=== PATIENT | male | born 1960 | race African-American/Black ===

== ENCOUNTER 2017-08-15 17:37 | Inpatient (IN) | payer OTHER ==
[2017-08-15] VITALS: BP 140/80
[~2017-08-15] VITALS: Ht 165.1 cm; Wt 63.5 kg
[2017-08-15 04:00] VITALS: BP 140/72
[~2017-08-15 17:37] MED LIST: ASPIR 8181 MG ORAL; DIOVAN80 MG ORAL; IBUPROFEN600 MG ORAL; NOVOLIN R100 UNIT/1 SUBQ
[2017-08-15 17:58] VITALS: BP 120/72
[2017-08-15 18:32] LABS: APPEARANCE,URINE CLEAR; BILIRUBIN, URINE NEGATIVE (NEGATIVE); COLOR,URINE PALE YELLOW; GLUCOSE, URINE (UA) 4+ (NEGATIVE); KETONES,URINE 1+ (NEGATIVE); LEUKOCYTE ESTERASE ,URINE NEGATIVE (NEGATIVE); NITRITE,URINE NEGATIVE (NEGATIVE); PH,URINE 5 (4.5-8.0); PROTEIN,URINE NEGATIVE (NEGATIVE); UROBILINOGEN,URINE NORMAL MG/DL (0.0-1.0)
[2017-08-15] MEDS ORDERED: Morphine Sulfate 4mg/ml Inj IM ONE (19:00)
[2017-08-15 19:55] VITALS: BP 157/74
[2017-08-15] MEDS ORDERED: NORCO 5-325 TA1 EAC1 ORAL (20:02)
[2017-08-15] MEDS ORDERED: PHENOBARBITAL32.4 MG PO (20:05)
[2017-08-15] MEDS ORDERED: GABAPENTIN300 MG ORAL (20:05)
[2017-08-15] MEDS ORDERED: CLOPIDOGREL75 MG ORAL (20:05)
[2017-08-15] MEDS ORDERED: SIMVASTATIN20 MG ORAL (20:05)
[2017-08-15] MEDS ORDERED: PHENYTOIN SODI100 MG ORAL (20:05)
[2017-08-15 20:32] LABS: ANION GAP 10 mmol/L (5-15); BLOOD UREA NITROGEN 7 mg/dL (7-18); CALCIUM 8.7 MG/DL (8.5-10.1); CARBON DIOXIDE 27 MMOL/L (21-32); CHLORIDE 96 MMOL/L (98-107); CREATININE 1.1 MG/DL (0.55-1.30); POTASSIUM 3.5 MMOL/L (3.5-5.1); SODIUM 133 MMOL/L (136-145)
[2017-08-15 20:45] LABS: ALANINE AMINOTRANSFERASE 35 U/L (12-78); ALBUMIN 3.2 G/DL (3.4-5.0); ALBUMIN/GLOBULIN RATIO 0.9 (1.0-2.7); ALKALINE PHOSPHATASE 80 U/L (46-116); ASPARTATE AMINO TRANSFERASE 25 U/L (15-37); BILIRUBIN,TOTAL 0.3 MG/DL (0.2-1.0); CKMB 1.6 NG/ML (0.0-3.6); CREATINE KINASE 85 U/L (26-308)
[2017-08-15] MEDS ORDERED: Morphine Sulfate 4mg/ml Inj IVP ONE (20:45)
--- NOTE | 2017-08-15 22:35 | Emergency Room Report ---
History of Present Illness General Chief Complaint: General Complaint Source: EMS Present Illness HPI Patient is a 57-year-old male brought in by EMS after increased generalized body aches as well as chest pain. Patient was having chest pain which was sharp in nature worse with breathing. Patient had a history of coronary artery disease. He reports having prior history of diabetes which was uncontrolled. Patient states that he takes insulin as well as a sliding scale. He denies any fever. He reports having prior history of angioplasty which was performed at [facility]. Patient states that he did have increased pain to his legs and has prior history of neuropathy. The patient's blood sugar checked by EMS was noted to be greater than 500. Allergies: Coded Allergies: No Known Allergies (Unverified , 03/05/16) Patient History Past Medical History: see triage record Reviewed Nursing Documentation: PMH: Agreed; PSxH: Agreed Nursing Documentation-PMH Past Medical History: No History, Except For Hx Cardiac Problems: Yes Hx Hypertension: Yes Hx Diabetes: Yes Hx Cancer: No Hx Gastrointestinal Problems: No Hx Neurological Problems: Yes - seizures Hx Seizures: Yes Review of Systems All Other Systems: negative except mentioned in HPI Physical Exam Vital Signs Date Time Temp Pulse Resp B/P (MAP) Pulse Ox O2 Delivery O2 Flow Rate FiO2 08/15/17 17:32 98.0 96 16 120/72 98 Room Air 98.1 Sp02 EP Interpretation: reviewed, normal General Appearance: normal inspection, well appearing, no apparent distress, alert, GCS 15, Chronically Ill Head: atraumatic ENT: normal ENT inspection, hearing grossly normal, normal voice Neck: normal inspection, full range of motion, supple, no bony tend Respiratory: normal inspection, no retraction, rhonchi Cardiovascular #1: regular rate, rhythm, edema Gastrointestinal: normal inspection, normal bowel sounds, non tender, soft, no guarding, no hernia Genitourinary: no CVA tenderness Musculoskeletal: normal inspection, back normal, normal range of motion Neurologic: normal inspection, alert, responsive, speech normal Psychiatric: normal inspection, judgement/insight normal, mood/affect normal Skin: normal inspection, normal color, no rash Medical Decision Making Diagnostic Impression: Primary Impression: Chest pain at rest Additional Impressions: Hyperglycemia Coronary artery disease ER Course Patient presented for chest pain.Differential diagnosis included but was not limited to acute coronary syndrome, pulmonary embolism, pneumonia, aortic dissection, shingles, pneumothorax, aortic dissection, esophageal rupture, pericarditis. Because of complexity of patient's case laboratory testing and imaging studies were ordered.Laboratory testing was notable for evidence of hyperglycemia as well as normal troponin.Chest Xray interpreted by me 1 view showed no evident infiltrate, normal mediastinum, and normal cardiac size.Patient was started on IV fluids as well as insulin.Dr. Duron was contacted for inpatient management due to need for inpatient monitoring and treatment. Labs Test 08/15/17 18:00 08/15/17 18:02 08/15/17 19:50 Urine Opiates Screen Negative (NEGATIVE) Urine Barbiturates Screen Negative (NEGATIVE) Phencyclidine (PCP) Screen Negative (NEGATIVE) Urine Amphetamines Screen Negative (NEGATIVE) Urine Benzodiazepines Screen Negative (NEGATIVE) Urine Cocaine Screen Negative (NEGATIVE) Urine Marijuana (THC) Screen Negative (NEGATIVE) Urine Color Pale yellow Urine Appearance Clear Urine pH 5 (4.5-8.0) Urine Specific [place] 1.005 (1.005-1.035) Urine Protein Negative (NEGATIVE) Urine Glucose (UA) 4+ (NEGATIVE) Urine Ketones 1+ (NEGATIVE) Urine Occult Blood Negative (NEGATIVE) Urine Nitrite Negative (NEGATIVE) Urine Bilirubin Negative (NEGATIVE) Urine Urobilinogen Normal MG/DL (0.0-1.0) Urine Leukocyte Esterase Negative (NEGATIVE) Sodium Level 133 MMOL/L (136-145) Potassium Level 3.5 MMOL/L (3.5-5.1) Chloride Level 96 MMOL/L (98-107) Carbon Dioxide Level 27 MMOL/L (21-32) Anion Gap 10 mmol/L (5-15) Blood Urea Nitrogen 7 mg/dL (7-18) Creatinine 1.1 MG/DL (0.55-1.30) Estimat Glomerular Filtration Rate > 60 mL/min (>60) Glucose Level 400 MG/DL (74-106) Calcium Level 8.7 MG/DL (8.5-10.1) Total Bilirubin 0.3 MG/DL (0.2-1.0) Aspartate Amino Transf (AST/SGOT) 25 U/L (15-37) Alanine Aminotransferase (ALT/SGPT) 35 U/L (12-78) Alkaline Phosphatase 80 U/L (46-116) Total Creatine Kinase 85 U/L (26-308) Creatine Kinase MB 1.6 NG/ML (0.0-3.6) Creatine Kinase MB Relative Index 1.8 Troponin I 0.038 ng/mL (0.000-0.056) Pro-B-Type Natriuretic Peptide 678 pg/mL (0-125) Total Protein 6.9 G/DL (6.4-8.2) Albumin 3.2 G/DL (3.4-5.0) Globulin 3.7 g/dL Albumin/Globulin Ratio 0.9 (1.0-2.7) Phenytoin (Dilantin) Level 0.5 ug/mL (10-20) Phenobarbital Level < 1.0 ug/mL (15-40) EKG Diagnostic Results Rate: normal - 95 Rhythm: NSR ST Segments: other - LVH twave inversion Rhythm Strip Diag. Results EP Interpretation: yes Rhythm: NSR, no PVC's, no ectopy Last Vital Signs Date Time Temp Pulse Resp B/P (MAP) Pulse Ox O2 Delivery O2 Flow Rate FiO2 08/15/17 20:56 98.1 08/15/17 19:55 96 15 157/74 96 Room Air Status: unchanged Disposition: ADMITTED INPATIENT Condition: Serious Referrals: [facility],REFERRING (PCP) Curry Hinkle Aug 15, 2017 22:35
[2017-08-16] MEDS ORDERED: Norco 5mg/325mg tab ORAL PRN (00:15)
[2017-08-16] MEDS ORDERED: Morphine Sulfate 10mg/ml Inj IVP PRN (01:15)
[2017-08-16] MEDS ORDERED: Morphine Sulfate 2mg/ml Inj IVP PRN (01:45)
[2017-08-16 02:02] LABS: BASOPHILS % (AUTO) 0.6 % (0.0-2.0); EOSINOPHILS % (AUTO) 1.8 % (0.0-3.0); HEMATOCRIT 29.3 % (42.0-52.0); HEMOGLOBIN 10.6 G/DL (14.2-18.0); LYMPHOCYTES % (AUTO) 33.7 % (20.0-45.0); MEAN CORPUSCULAR VOLUME 85 FL (80-99); MONOCYTES % (AUTO) 4.9 % (1.0-10.0); NEUTROPHILS % (AUTO) 59.1 % (45.0-75.0); PLATELET COUNT 251 K/UL (150-450); RED BLOOD COUNT 3.45 M/UL (4.70-6.10); RED CELL DISTRIBUTION WIDTH 11.1 % (11.6-14.8)
[2017-08-16] MEDS: Norco 5mg/325mg tab ORAL PRN ×3 (02:22→18:59)
[2017-08-16 02:33] LABS: ANION GAP 5 mmol/L (5-15); BLOOD UREA NITROGEN 6 mg/dL (7-18); CALCIUM 8.9 MG/DL (8.5-10.1); CARBON DIOXIDE 30 MMOL/L (21-32); CHLORIDE 95 MMOL/L (98-107); CREATININE 0.9 MG/DL (0.55-1.30); POTASSIUM 3.8 MMOL/L (3.5-5.1); SODIUM 130 MMOL/L (136-145)
[2017-08-16] MEDS: NovoLOG Insulin Flexpen SUBQ SCH ×4 (07:21→20:35)
[2017-08-16] MEDS: Heparin 5000 units/ml inj SUBQ SCH ×2 (08:19→20:37)
--- NOTE | 2017-08-16 08:21 | Cardiology Progress Note ---
Assessment/Plan Assessment/Plan The patient is seen and examined, full consult note will be dictated. Objective Last 24 Hour Vital Signs Date Time Temp Pulse Resp B/P (MAP) Pulse Ox O2 Delivery O2 Flow Rate FiO2 08/16/17 04:00 84 08/16/17 04:00 84 08/16/17 00:00 83 08/15/17 22:15 98.1 96 15 157/74 96 Room Air 208.6 08/15/17 20:56 98.1 08/15/17 19:55 96 15 157/74 96 Room Air 08/15/17 18:53 98.1 08/15/17 17:58 98.1 94 16 120/72 98 Room Air 98.1 08/15/17 17:32 98.0 96 16 120/72 98 Room Air 98.1 Intake and Output 08/15/17 08/16/17 19:00 07:00 Output Total 500 ml Balance -500 ml Output Urine Total 500 ml # Voids 1 2 Laboratory Tests Test 08/15/17 18:00 08/15/17 18:02 08/15/17 19:50 08/16/17 01:30 Urine Opiates Screen Negative (NEGATIVE) Urine Barbiturates Screen Negative (NEGATIVE) Phencyclidine (PCP) Screen Negative (NEGATIVE) Urine Amphetamines Screen Negative (NEGATIVE) Urine Benzodiazepines Screen Negative (NEGATIVE) Urine Cocaine Screen Negative (NEGATIVE) Urine Marijuana (THC) Screen Negative (NEGATIVE) Urine Color Pale yellow Urine Appearance Clear Urine pH 5 (4.5-8.0) Urine Specific [place] 1.005 (1.005-1.035) Urine Protein Negative (NEGATIVE) Urine Glucose (UA) 4+ (NEGATIVE) H Urine Ketones 1+ (NEGATIVE) H Urine Occult Blood Negative (NEGATIVE) Urine Nitrite Negative (NEGATIVE) Urine Bilirubin Negative (NEGATIVE) Urine Urobilinogen Normal MG/DL (0.0-1.0) Urine Leukocyte Esterase Negative (NEGATIVE) White Blood Count Pending 5.0 K/UL (4.8-10.8) Red Blood Count Pending 3.45 M/UL (4.70-6.10) L Hemoglobin Pending 10.6 G/DL (14.2-18.0) L Hematocrit Pending 29.3 % (42.0-52.0) L Mean Corpuscular Volume Pending 85 FL (80-99) Mean Corpuscular Hemoglobin Pending 30.8 PG (27.0-31.0) Mean Corpuscular Hemoglobin Concent Pending 36.3 G/DL (32.0-36.0) H Red Cell Distribution Width Pending 11.1 % (11.6-14.8) L Platelet Count Pending 251 K/UL (150-450) Mean Platelet Volume Pending 5.8 FL (6.5-10.1) L Neutrophils (%) (Auto) Pending 59.1 % (45.0-75.0) Lymphocytes (%) (Auto) Pending 33.7 % (20.0-45.0) Monocytes (%) (Auto) Pending 4.9 % (1.0-10.0) Eosinophils (%) (Auto) Pending 1.8 % (0.0-3.0) Basophils (%) (Auto) Pending 0.6 % (0.0-2.0) Prothrombin Time Pending Prothromb Time International Ratio Pending Activated Partial Thromboplast Time Pending Sodium Level 133 MMOL/L (136-145) L 130 MMOL/L (136-145) L Potassium Level 3.5 MMOL/L (3.5-5.1) 3.8 MMOL/L (3.5-5.1) Chloride Level 96 MMOL/L (98-107) L 95 MMOL/L (98-107) L Carbon Dioxide Level 27 MMOL/L (21-32) 30 MMOL/L (21-32) Anion Gap 10 mmol/L (5-15) 5 mmol/L (5-15) Blood Urea Nitrogen 7 mg/dL (7-18) 6 mg/dL (7-18) L Creatinine 1.1 MG/DL (0.55-1.30) 0.9 MG/DL (0.55-1.30) Estimat Glomerular Filtration Rate > 60 mL/min (>60) > 60 mL/min (>60) Glucose Level 400 MG/DL (74-106) H 382 MG/DL (74-106) H Calcium Level 8.7 MG/DL (8.5-10.1) 8.9 MG/DL (8.5-10.1) Total Bilirubin 0.3 MG/DL (0.2-1.0) Aspartate Amino Transf (AST/SGOT) 25 U/L (15-37) Alanine Aminotransferase (ALT/SGPT) 35 U/L (12-78) Alkaline Phosphatase 80 U/L (46-116) Total Creatine Kinase 85 U/L (26-308) Creatine Kinase MB 1.6 NG/ML (0.0-3.6) Creatine Kinase MB Relative Index 1.8 Troponin I 0.038 ng/mL (0.000-0.056) 0.032 ng/mL (0.000-0.056) Pro-B-Type Natriuretic Peptide 678 pg/mL (0-125) H Total Protein 6.9 G/DL (6.4-8.2) Albumin 3.2 G/DL (3.4-5.0) L Globulin 3.7 g/dL Albumin/Globulin Ratio 0.9 (1.0-2.7) L Phenytoin (Dilantin) Level 0.5 ug/mL (10-20) L Phenobarbital Level < 1.0 ug/mL (15-40) L Hemoglobin A1c 10.7 % (4.3-6.0) H LINDA CLAIRE Aug 16, 2017 08:21
[2017-08-16] MEDS ORDERED: Phenytoin 100mg cap ORAL SCH (09:00)
--- NOTE | 2017-08-16 09:03 | History & Physical ---
History and Physical History & Physicial seen and examined. Dictation completed Onesimo Duron MD Aug 16, 2017 09:03
--- NOTE | 2017-08-16 09:04 | General Progress Note ---
Assessment/Plan Status: stable Assessment/Plan 1- Chest pain - r/o ACS 2- DM-uncontrolled 3- HTN 4- HLP 5- Hyponatremia Plan: Neuro, Cardio, Nephro are consulted DC- IV narcotic pending echo Subjective Allergies: Coded Allergies: No Known Allergies (Unverified , 03/05/16) Objective Last 24 Hour Vital Signs Date Time Temp Pulse Resp B/P (MAP) Pulse Ox O2 Delivery O2 Flow Rate FiO2 08/16/17 04:00 84 08/16/17 04:00 84 08/16/17 00:00 83 08/15/17 22:15 98.1 96 15 157/74 96 Room Air 208.6 08/15/17 20:56 98.1 08/15/17 19:55 96 15 157/74 96 Room Air 08/15/17 18:53 98.1 08/15/17 17:58 98.1 94 16 120/72 98 Room Air 98.1 08/15/17 17:32 98.0 96 16 120/72 98 Room Air 98.1 Intake and Output 08/15/17 08/16/17 19:00 07:00 Output Total 500 ml Balance -500 ml Output Urine Total 500 ml # Voids 1 2 Laboratory Tests 08/15/17 18:00: Urine Opiates Screen Negative, Urine Barbiturates Screen Negative, Phencyclidine (PCP) Screen Negative, Urine Amphetamines Screen Negative, Urine Benzodiazepines Screen Negative, Urine Cocaine Screen Negative, Urine Marijuana (THC) Screen Negative 08/15/17 18:02: Urine Color Pale yellow, Urine Appearance Clear, Urine pH 5, Urine Specific [place] 1.005, Urine Protein Negative, Urine Glucose (UA) 4+H, Urine Ketones 1+H , Urine Occult Blood Negative, Urine Nitrite Negative, Urine Bilirubin Negative , Urine Urobilinogen Normal, Urine Leukocyte Esterase Negative 08/15/17 19:50: White Blood Count [Pending], Red Blood Count [Pending], Hemoglobin [Pending], Hematocrit [Pending], Mean Corpuscular Volume [Pending], Mean Corpuscular Hemoglobin [Pending], Mean Corpuscular Hemoglobin Concent [Pending], Red Cell Distribution Width [Pending], Platelet Count [Pending], Mean Platelet Volume [ Pending], Neutrophils (%) (Auto) [Pending], Lymphocytes (%) (Auto) [Pending], Monocytes (%) (Auto) [Pending], Eosinophils (%) (Auto) [Pending], Basophils (%) (Auto) [Pending], Prothrombin Time [Pending], Prothromb Time International Ratio [Pending], Activated Partial Thromboplast Time [Pending], Sodium Level 133L, Potassium Level 3.5, Chloride Level 96L, Carbon Dioxide Level 27, Anion Gap 10, Blood Urea Nitrogen 7, Creatinine 1.1, Estimat Glomerular Filtration Rate > 60, Glucose Level 400H, Calcium Level 8.7, Total Bilirubin 0.3, Aspartate Amino Transf (AST/SGOT) 25, Alanine Aminotransferase (ALT/SGPT) 35, Alkaline Phosphatase 80, Total Creatine Kinase 85, Creatine Kinase MB 1.6, Creatine Kinase MB Relative Index 1.8, Troponin I 0.038, Pro-B-Type Natriuretic Peptide 678H, Total Protein 6.9, Albumin 3.2L, Globulin 3.7, Albumin/Globulin Ratio 0.9L, Phenytoin (Dilantin) Level 0.5L, Phenobarbital Level < 1.0L 08/16/17 01:30: White Blood Count 5.0, Red Blood Count 3.45L, Hemoglobin 10.6L, Hematocrit 29.3L , Mean Corpuscular Volume 85, Mean Corpuscular Hemoglobin 30.8, Mean Corpuscular Hemoglobin Concent 36.3H, Red Cell Distribution Width 11.1L, Platelet Count 251, Mean Platelet Volume 5.8L, Neutrophils (%) (Auto) 59.1, Lymphocytes (%) (Auto) 33.7, Monocytes (%) (Auto) 4.9, Eosinophils (%) (Auto) 1.8, Basophils (%) (Auto) 0.6, Sodium Level 130L, Potassium Level 3.8, Chloride Level 95L, Carbon Dioxide Level 30, Anion Gap 5, Blood Urea Nitrogen 6L, Creatinine 0.9, Estimat Glomerular Filtration Rate > 60, Glucose Level 382H, Calcium Level 8.9, Troponin I 0.032, Hemoglobin A1c 10.7H Height (Feet): 5 Height (Inches): 5.00 Weight (Pounds): 140 Onesimo Duron MD Aug 16, 2017 09:04
--- NOTE | 2017-08-16 09:59 | Consultation ---
Consult Note Consult Note Patient is a 57-year-old male brought in by EMS after increased generalized body aches as well as chest pain. Patient was having chest pain which was sharp in nature worse with breathing. Patient had a history of coronary artery disease. He reports having prior history of diabetes which was uncontrolled. Patient states that he takes insulin as well as a sliding scale. He denies any fever. He reports having prior history of angioplasty which was performed at [facility]. Patient states that he did have increased pain to his legs and has prior history of neuropathy. The patient's blood sugar checked by EMS was noted to be greater than 500. Past Medical History: No History, Except For Hx Cardiac Problems: Yes Hx Hypertension: Yes Hx Diabetes: Yes Hx Neurological Problems: Yes - seizures Hx Seizures: Yes Assessment/Plan 1- Chest pain - r/o ACS 2- DM-uncontrolled 3- HTN 4- HLP 5- Hyponatremia due to high sugar Control BS Per Cardio per orders TERRA BOSWELL Aug 16, 2017 09:58
--- NOTE | 2017-08-16 10:04 | Diagnostic Imaging Report ---
Indication: Reason For Exam: SOB Technique: One view of the chest Comparison: 03/05/2016 Findings: Lungs and pleural spaces are clear. Heart size is normal. Mild right paratracheal prominence is unchanged Impression: No acute process
[2017-08-16] MEDS: Docusate 100mg cap ORAL SCH ×2 (11:24→16:30)
[2017-08-16] MEDS: Lidocaine 1% Plain 30 ml INJ SCH (12:30)
[2017-08-16] MEDS: Heparin 2000 units/Ns 1000ml INJ SCH (12:30)
[2017-08-16] MEDS ORDERED: Lexiscan 0.4mg/5ml syringe IV PRN (15:00)
--- NOTE | 2017-08-16 15:21 | Diagnostic Imaging Report ---
Indications: Needs long-term IV access Technique: Ultrasound confirms patent compressible left basilic vein. Total sterile technique, including sterile probe cover and sterile gel, hat, mask,, sterile gown, large sterile drape, and preparation with 2% chlorhexidine utilized. Local anesthesia with 1% lidocaine. Under real-time ultrasound guidance, puncture basilic vein using 21-gauge needle, documented and archived, passage 0.018 guidewire under direct fluoroscopy, which was used to determine appropriate catheter length, exchange for 5 Frisian peel-away sheath. 5 Frisian Bard dual-lumen power PICC cut to 39 cm. It was inserted through the peel-away sheath. Peel-away sheath and guidewire removed. Catheter fixed to the skin. Both catheter ports aspirated and flushed. Patient tolerated procedure well, without immediate complication. Digital radiograph documents satisfactory catheter tip position, at the cavoatrial junction. Total fluoroscopy time zero point minutes. Total dose area product 4 dGycm2 Impression: Successful placement of left arm PICC under sonographic and fluoroscopic guidance, as described above.
--- NOTE | 2017-08-16 16:01 | Cardiology Report ---
APPROVED REPORT EKG Measurement Heart [id number] CT 170P48 [id number] Sinus rhythm with premature supraventricular complexes Nonspecific T wave abnormality Abnormal ECG
--- NOTE | 2017-08-16 16:06 | Cardiology Report ---
APPROVED REPORT EKG Measurement Heart [id number] [id number] [id number] Normal sinus rhythm Possible Left atrial enlargement Septal infarct, age undetermined T wave abnormality, consider inferolateral ischemia Abnormal ECG
--- NOTE | 2017-08-16 16:45 | Consultation ---
DATE OF CONSULTATION: 08/16/2017 CARDIOLOGY CONSULTATION CONSULTING PHYSICIAN: Juan Ortez M.D. REFERRING PHYSICIAN: Onesimo Duron M.D. REASON FOR CONSULTATION: Management of chest pain. HISTORY OF PRESENT ILLNESS: The patient is a very unfortunate 57-year-old gentleman, who was brought in by EMS after increased generalized body aches as well as chest pain. The chest pain is described as sharp and worse with breathing. The patient has history of coronary artery disease, status post two stent placement at [facility] about two years ago. The patient states that his diabetes mellitus is uncontrolled. At the time of arrival to the hospital, UA showed 4+ glucose and 1+ ketone. Troponin I x2 were negative. ProBNP was 678. A 12-lead electrocardiogram was significant for ectopic atrial rhythm with nonspecific ST and T-wave abnormalities. No distinct evidence of ischemia. The patient happened to have 2D echocardiography from February 2016 in this facility, which showed normal LV systolic function with LVEF approximately 60% to 65%. No wall motion abnormality. Mild left ventricular hypertrophy and grade 1 LV diastolic dysfunction. His pulmonary artery pressure was also within normal limits at that time. He was admitted to telemetry for further evaluation and management of hyperglycemia. Of note, his initial glucose level was 400. Cardiology consultation was made at the request of Dr. Duron to assist manage this patient. PAST MEDICAL HISTORY: 1. Coronary artery disease, status post PCI x2 stents two years ago at [facility]. 2. Hypertension. 3. Diabetes mellitus. 4. History of seizure disorder. PAST SURGICAL HISTORY: Angioplasty and stent placement. MEDICATIONS: List of medications at home aspirin 81 mg p.o. daily, clopidogrel 75 mg p.o. daily, gabapentin 300 mg p.o. at bedtime, [place] 5/325 one tablet q.8 hours p.r.n. pain, Motrin 600 mg q.8 hours p.r.n. pain, insulin Novolin, phenobarbital 32.4 mg p.o. twice daily, phenytoin 100 mg p.o. once daily, Zocor 20 mg p.o. at bedtime, and valsartan 80 mg p.o. daily. ALLERGIES: No known drug allergies. REVIEW OF SYSTEMS: A 12-system review done is essentially negative except what is mentioned in history of present illness. PHYSICAL EXAMINATION: VITAL SIGNS: Blood pressure at the time of arrival to the hospital was 120/72, pulse of 96, respirations 16, O2 saturation 98% on room air, and temperature 98.2 degrees Fahrenheit. GENERAL: The patient is a very unfortunate 57-year-old gentleman, in no apparent respiratory distress. Alert and oriented x4. HEENT: Atraumatic and normocephalic. Anicteric. Pupils are equal, round, and reactive to light and accommodation. Extraocular muscles intact. NECK: JVP less than 5 cm. No carotid bruit. Carotid upstrokes 2+ bilaterally. CARDIOVASCULAR: Normal S1, S2. Regular rate and rhythm. No murmurs, gallops, or rubs. PMI is at fourth intercostal space in the midclavicular line. LUNGS: Clear to auscultation bilaterally. ABDOMEN: Soft, nontender, and nondistended. No hepatosplenomegaly. Positive bowel sounds. EXTREMITIES: No evidence of edema, clubbing, or cyanosis. LABORATORY FINDINGS: Sodium is 133, potassium is 3.5, chloride 96, bicarbonate 27, BUN 7, creatinine is 1.1, glucose is 400, and calcium is 8.7. Troponin I x2 is negative. ProBNP was 678. INR is pending. WBC 5.0, hemoglobin 10.6, hematocrit 29.3, and platelet count is 253,000. Urine tox was negative. ASSESSMENT AND PLAN: The patient is a very unfortunate 57-year-old gentleman, who is seen in Cardiology consultation for evaluation of chest pain although this is noncardiac in nature, I would like to proceed with a Lexiscan stress Cardiolite given the patient's prior history of coronary artery disease, myocardial infarction, and stent placement. Further diagnostic and therapeutic decision will be based on the results of this test. I would like to thank, Dr. Duron, for the courtesy of this consultation. Juan Ortez M.D. DR: KALEY JOB#: [id number] CC:
--- NOTE | 2017-08-16 19:17 | Consultation ---
Consult Note Consult Note NEUROLOGY CONSULTATION: Full note dictated #[id number] 57 y/o, RH, BM with PH of HTN, DM, DL, CAD s/p PCI and stents, a fall of a horse when he was 20 and a post traumatic seizure disorder for which he has been taking phenobarbital 60 mg and Dilantin 300 mg. He was hospitalized on 08/15/17 for increased generalized body aches as well as chest pain which was sharp in nature worse with breathing. He also reported that his diabetes was uncontrolled. He complained of increased pain to his legs and attributed that to a neuropathy. His blood sugar checked by EMS was measured at > 500. He has been told that his seizures are GTC and his last seizure was a few weeks ago. ON EXAM: Problems with orientation, memory, VSF, HCF language. Give way weakness in both LEs. Altered sensations in knee high stocking dist. Globally diminished DTRs Refuses to stand and walk. IMPRESSION: H/O seizures which patient says are post-traumatic. H/O LE neuropathy most probably diabetic. Behavioral problems - exclude psychiatric illness. Non-compliant with therapeutic regimen - unmeasurable Dilantin and Phenobarbital levels. REC: Keep on single anticonvulsant Dilantin 300 mg q HS and aim for level of 12-18 mg/dl. EEG Neurontin for Neuropathy - 300 mg q 8 h. Observe. Jaime Vasques M.D., M.S.P.JAIME RIVAS Aug 16, 2017 19:17
--- NOTE | 2017-08-16 19:30 | History and Physical Report ---
DATE OF ADMISSION: 08/15/2017 SOURCE OF INFORMATION: The patient and EMR. HISTORY OF PRESENT ILLNESS: The patient is a 57-year-old misfortunate male with history of uncontrolled diabetes and coronary artery disease. The patient presented with pain for the last 1 or 2 weeks with worsening in the last couple of days. The patient also complains of worsening accentuation of the pain in the anterior chest wall with radiation to both arms. He denies any alleviating or aggravating factor for this pain. Denies any nausea or vomiting. Denies any fever or chills. Denies any loss of consciousness. PAST MEDICAL HISTORY: Coronary artery disease, status post PTCA and two stent placements reportedly, diabetes type 2 uncontrolled, diabetic neuropathy, seizure disorder, hyperlipidemia, and hypertension. PAST SURGICAL HISTORY: PTCA x2. MEDICATIONS: Current hospital medications including but not limited to gabapentin 300 mg p.o. nightly, heparin subcutaneous 5000 twice a day, sliding scale insulin. I reviewed and reconciled in the chart. Dilantin 100 mg p.o. daily. FAMILY HISTORY: Reviewed, noncontributory. SOCIAL HISTORY: The patient denies history of illicit drug abuse, smoking, or alcohol abuse. The patient reported that he lives with a friend. REVIEW OF SYSTEMS: All 12 elements of review of systems, pertinent positives and negatives as above. PHYSICAL EXAMINATION: VITAL SIGNS: Blood pressure 150/80, temperature 98.2 degrees, pulse oximetry 98% on room air, pulse rate 95-105, and respiratory rate 15-20. HEAD AND NECK: Atraumatic and normocephalic. CHEST: Clear to auscultation. No wheezing. No crackles. ABDOMEN: Soft. No organomegaly. HEART: S1 and S2. Regular rate and rhythm. Negative for S4. ABDOMEN: Soft. No organomegaly. MUSCULOSKELETAL: Decreased range of motion in all extremities secondary to the pain. NEUROLOGIC: The patient is awake, alert, and oriented x3. PSYCHIATRIC: Mood and affect is anxious. LABORATORY AND DIAGNOSTIC DATA: Labs dated August 15 shows sodium 133, potassium 3.5, BUN 7, creatinine 1.1, and glucose 400. BNP 670. CBC pending. UA shows 4+ . Phenobarbital less than 1. Troponin x2 negative. ASSESSMENT AND PLAN: 1. Chest pain/atypical - in high risk patient for acute coronary syndrome. 2. Hyponatremia. 3. Diabetes type 2, uncontrolled. 4. Noncompliance with medications. 5. Seizure disorder with subtherapeutic medications. 6. Diabetic neuropathy. 7. Anemia. 8. GI and DVT prophylaxis. PLAN OF CARE: We will admit to telemetry to evaluate the possibility of acute coronary syndrome. Meanwhile, we will resume the home medications and optimize them according to the vital signs as well as laboratory results. Neurology, Endocrinology, and Nephrology have been consulted. I will obtain 2D echo. We will increase the dose of Levemir and continue with sliding scale. Avoid the narcotic IV medications. Continue with phenytoin. Onesimo Duron M.D. DR: DEANA JOB#: [id number] CC:
[2017-08-16 20:00] VITALS: BP 134/72
[2017-08-16] MEDS: Dyna-Hex 2% Top Sol 2oz TOPIC SCH (20:35)
[2017-08-16] MEDS: Phenytoin 100mg cap ORAL SCH (20:37)
[2017-08-16] MEDS ORDERED: Levemir Flexpen SUBQ SCH ×2 (21:00)
[2017-08-17] VITALS: BP 117/59
[2017-08-17] MEDS: Norco 5mg/325mg tab ORAL PRN ×4 (02:07→21:38)
[2017-08-17 04:00] VITALS: BP 119/79
[2017-08-17] MEDS: Docusate 100mg cap ORAL SCH ×3 (06:08→15:32)
[2017-08-17] MEDS: NovoLOG Insulin Flexpen SUBQ SCH ×4 (06:30→20:37)
[2017-08-17 07:17] LABS: ALANINE AMINOTRANSFERASE 29 U/L (12-78); ALBUMIN 2.8 G/DL (3.4-5.0); ALBUMIN/GLOBULIN RATIO 0.8 (1.0-2.7); ALKALINE PHOSPHATASE 57 U/L (46-116); ANION GAP 3 mmol/L (5-15); ASPARTATE AMINO TRANSFERASE 15 U/L (15-37); BILIRUBIN,TOTAL 0.3 MG/DL (0.2-1.0); BLOOD UREA NITROGEN 5 mg/dL (7-18); CALCIUM 8.6 MG/DL (8.5-10.1); CARBON DIOXIDE 32 MMOL/L (21-32); CHLORIDE 103 MMOL/L (98-107); CHOLESTEROL 153 MG/DL (< 200); CREATINE KINASE 54 U/L (26-308); CREATININE 0.9 MG/DL (0.55-1.30); FERRITIN 103 NG/ML (8-388); GAMMA GLUTAMYL TRANSPEPTIDASE 83 U/L (5-85); HDL CHOLESTEROL 70 MG/DL (40-60); PHOSPHORUS 3.5 MG/DL (2.5-4.9); POTASSIUM 3.7 MMOL/L (3.5-5.1); SODIUM 138 MMOL/L (136-145); TRIGLYCERIDES 44 MG/DL (30-150)
[2017-08-17 07:33] LABS: BASOPHILS % (AUTO) 0.5 % (0.0-2.0); EOSINOPHILS % (AUTO) 1.5 % (0.0-3.0); HEMATOCRIT 28.6 % (42.0-52.0); HEMOGLOBIN 10.2 G/DL (14.2-18.0); LYMPHOCYTES % (AUTO) 32.3 % (20.0-45.0); MEAN CORPUSCULAR VOLUME 86 FL (80-99); MONOCYTES % (AUTO) 4.7 % (1.0-10.0); PLATELET COUNT 228 K/UL (150-450); RED BLOOD COUNT 3.33 M/UL (4.70-6.10); RED CELL DISTRIBUTION WIDTH 11.5 % (11.6-14.8); WHITE BLOOD COUNT 4.8 K/UL (4.8-10.8)
[2017-08-17 07:36] LABS: % IRON SATURATION 18 % (15-50); IRON 34 ug/dL (50-175); TOTAL IRON BINDING CAPACITY 194 ug/dL (250-450)
[2017-08-17 08:00] VITALS: BP 119/92
[2017-08-17] MEDS: Heparin 5000 units/ml inj SUBQ SCH ×2 (08:06→20:36)
--- NOTE | 2017-08-17 08:46 | Consultation ---
DATE OF CONSULTATION: 08/16/2017 NEUROLOGY CONSULTATION CONSULTING PHYSICIAN: Adriano Vasques M.D. REQUESTING PHYSICIAN: Onesimo Duron M.D. HISTORY: Mr. Jojo Monroe is a 57-year-old, right-handed, black gentleman, who does have past history of hypertension, diabetes mellitus, dyslipidemia, coronary artery disease - status post percutaneous interventions and stent placements, a fall off a horse when he was 20 years old followed by a posttraumatic seizure disorder for which he has been taking the phenobarbital 60 mg and Dilantin 300 mg since then. He was functioning relatively well until 08/15/2017 when he was brought into the [facility] emergency room for generalized body aches and chest pain, which was sharp in nature and worse with breathing, and diabetes out of control. He also complained of increased pain in his legs attributed it to his diabetic neuropathy. His blood sugar was checked by the emergency medical services and was measured at greater than 500. This consultation was requested by Dr. Duron to evaluate the patient from a neurological point of view for his seizure disorder. As per the patient, he apparently was riding a horse, fell down and had a head injury. He is unable to tell me if he lost consciousness during that fall or not. He then developed a seizure disorder and he tells me that his seizures are all grand-mal. He apparently looses consciousness, his whole body starts shaking. He bites his tongue frequently and sometimes has bowel and bladder incontinence when he has a seizure. Ever since his seizure diagnosis was made, he was started on Dilantin and phenobarbital and has been on those two drugs since then. He apparently takes these drugs in quite an erratic fashion. His last seizure was a few weeks ago. He is unable to tell me what the circumstances were associated with that seizure. He is also unable to tell me if he was taking his medicines regularly or not at that time. Anyhow, when he was hospitalized at [facility], his Dilantin and phenobarbital levels were non-measurable. PAST HISTORY: Significant for hypertension, diabetes mellitus, dyslipidemia, coronary artery disease - status post percutaneous interventions and stent placements, and head trauma at age 20 followed by a posttraumatic seizure disorder. FAMILY HISTORY: The patient was exceedingly cryptic about his family and did not want to tell me if there was any family history of any illnesses. PERSONAL HISTORY: Home: He again did not want to tell me where he lives. Work: He states that he is disabled now, but in the past, he did clerical work. Habits: He denies the use of alcohol, tobacco, or illicit drugs. MEDICATIONS: Neurontin 300 mg at bedtime, insulin, Dilantin 300 mg at bedtime, heparin for DVT prophylaxis, pantoprazole, Langford p.r.n., and Tylenol p.r.n. PHYSICAL EXAMINATION: GENERAL: He is a well-developed and well-nourished, black gentleman, behaving in an unusual manner. VITAL SIGNS: Pulse 78 per minute, blood pressure 157/74 mm Hg, respirations 15 per minute, and temperature 98.1 degrees Fahrenheit. HEAD: Normocephalic and atraumatic. NECK: No neck rigidity was observed. EENT: Examination benign. NEUROLOGIC EXAMINATION: MENTAL STATUS EXAMINATION: He was awake and alert. He was oriented to self, hospital, and July 2017. He did not know the name of the hospital and did not know the exact date. He was able to recall 3/3 words immediately, but could only remember 2/3 words in 1 minute and 3 minutes even on the second trial. He was able to remember presidents, Trump and Obama, but could not remember presidents prior to that. His mathematical skills were impaired. His visuospatial function was also impaired. SPEECH: He had no dysarthria. LANGUAGE: He had anomia for low-frequency words. CRANIAL NERVE EXAMINATION: II: The visual singh were intact to confrontation testing. III, IV & : The external ocular movements were full and the pupils 3 mm in diameter, equal, round, regular, and reactive to light. V: He had normal facial sensations, and the temporales, masseters, and pterygoids functioned normally. VII: He had normal facial expressions and no facial asymmetry. VIII: He was able to hear well bilaterally and had no nystagmus. IX: The palate moved symmetrically on phonation. X: He had no hoarseness of voice. XI: The sternocleidomastoids and trapezii functioned normally. XII: The tongue was in the midline without any fasciculations or atrophy. MOTOR SYSTEM: The tone was normal in all four extremities. Examination of muscle mass revealed some wasting of both lower extremities. Examination of power was exceedingly difficult to perform because of varying degrees of cooperation and significant give-way weakness. He had approximately G 5/5 power in the upper extremities. In the lower extremities, he had G 4/5 in the iliopsoas and G 4+/5 in the ankle dorsiflexors and toe extensors. Elsewhere, he had G 5-/5. SENSORY EXAMINATION: He complained of altered sensations to pinprick and light touch in a knee-high stocking distribution. He did not cooperate for the sensory modalities. REFLEXES: Trace+ and bilaterally symmetrical at the biceps, triceps, brachioradialis and knees. 0 at both ankles. The plantar responses were flexor bilaterally. COORDINATION: He performed well on [id number] testing. He was unable to perform [id number] testing. STANCE & GAIT: Could not be tested, as he refused to stand and walk. DIAGNOSTIC IMPRESSION: 1. Mr. Jojo Monroe is a 57-year-old, right-handed, black gentleman, with past history of hypertension, diabetes mellitus, dyslipidemia, coronary artery disease, closed head trauma at age 20 followed by a posttraumatic seizure disorder, who was hospitalized on 08/15/2017 for increased generalized body aches, chest pain and diabetes out of control. He also complained of increased neuropathic pain involving his lower extremities. In addition, his blood sugars were measured at more than 500. He does have a prior history of seizures, but his last seizure was a few weeks ago. 2. On neurological examination, at this time, he demonstrates significant problems with orientation, recent and remote memory, visuospatial function, higher cognitive function, and language. In addition, he also exhibits some unusual behavioral patterns. He does have weakness in both lower extremities, however, it is uncertain as to how much of the weakness is true and how much of it is give-way weakness. He also complains of altered sensations in a knee-high stocking distribution. His deep tendon reflexes are globally diminished and absent at the ankles. He refuses to stand and walk. 3. Laboratory data obtained thus far revealed an anemia with a hemoglobin of 10.6. His hemoglobin A1c was elevated to 10.7%. His urine toxicology screen was negative and his phenytoin and phenobarbital levels were nonmeasurable. 4. The patient's history and neurological examination are most compatible with history of a seizure disorder, which the patient reports to be posttraumatic. It is unclear as to why he is on two anticonvulsants and it is also unclear as to why his drug levels were nonmeasurable when he states that he was taking his medicines. There is a high probability that he has been noncompliant with his therapeutic regimen. RECOMMENDATIONS: 1. Agree with management thus far. 2. The patient will be kept on a single anticonvulsant that is Dilantin 300 mg at bedtime. Attempts should be made to aim for a trough level of 12 to 18 mcg/dL. 3. An EEG will be ordered to better delineate the type of seizure disorder. 4. The patient is quite uncomfortable from the neuropathic process involving his lower extremities, this is most probably because of his uncontrolled diabetes mellitus. However, the dose of Neurontin that he is taking is relatively low and thus his dose of Neurontin will be increased to 300 mg q.8 h. to help him with his neuropathic process. 5. The patient will be observed closely and depending on how he fares over the next day or so, further recommendations will be given. Thank you for entrusting me with the care of Mr. Monroe. I shall follow him with you. Adriano Vasques M.D., M.S.P.H. DR: JAZLYN JOB#: [id number] MTDD
--- NOTE | 2017-08-17 11:46 | Diagnostic Imaging Report ---
Indications: Seizures from posttraumatic injury in the past, bilateral lower extremity weakness Technique: Spiral acquisitions obtained through the brain. Angled axial and coronal 5 x 5 mm slices were reconstructed. Total dose length product 1372.57 mGycm. CTDI vol(s) 70.38 mGy. Dose reduction achieved using automated exposure control Comparison: None. Findings: There is very slight prominence of the ventricles and extra-axial CSF spaces. Normal dixon-white differentiation. No acute intracranial hemorrhage or edema, mass effect, nor midline shift. There is very slight edema of the scalp diffusely. Intact calvarium. There is a fracture deformity of the nasal bone, age indeterminate although suspect old. The sinuses demonstrate minimal ethmoid opacification. The orbits are unremarkable Impression: Minimal age-related volume loss Negative for acute intracranial bleed or mass effect Minimal ethmoid sinus disease Nasal fracture deformity, age indeterminate although suspect not acute. Correlate with clinical findings The CT scanner at [facility] is accredited by the [employer] and the scans are performed using protocols designed to limit radiation exposure to as low as reasonably achievable to attain images of sufficient resolution adequate for diagnostic evaluation.
[2017-08-17 12:00] VITALS: BP_SYST 112; BP_SYST 119; BP_SYST 132; BP_DIAS 57; BP_DIAS 67; BP_DIAS 76
[2017-08-17] MEDS: Lidocaine 1% Plain 30 ml INJ SCH (12:18)
[2017-08-17] MEDS: Heparin 2000 units/Ns 1000ml INJ SCH (12:18)
--- NOTE | 2017-08-17 12:39 | Neurology Progress Note ---
Interim History Interim History Interim History Mr. Monroe feels better. He has been seizure free. His neuropathy discomfort is better. He denies any new neurologic symptoms. He is more cooperative today. Review of Systems Neuro Review of Systems Benign. Objective Physical Exam Last Vital Signs Date Time Temp Pulse Resp B/P (MAP) Pulse Ox O2 Delivery O2 Flow Rate FiO2 08/17/17 08:00 97.7 88 21 119/92 97 Room Air 97.7 Laboratory Tests Test 08/16/17 17:00 08/17/17 06:20 Troponin I 0.014 ng/mL (0.000-0.056) 0.017 ng/mL (0.000-0.056) White Blood Count 4.8 K/UL (4.8-10.8) Red Blood Count 3.33 M/UL (4.70-6.10) L Hemoglobin 10.2 G/DL (14.2-18.0) L Hematocrit 28.6 % (42.0-52.0) L Mean Corpuscular Volume 86 FL (80-99) Mean Corpuscular Hemoglobin 30.7 PG (27.0-31.0) Mean Corpuscular Hemoglobin Concent 35.7 G/DL (32.0-36.0) Red Cell Distribution Width 11.5 % (11.6-14.8) L Platelet Count 228 K/UL (150-450) Mean Platelet Volume 6.1 FL (6.5-10.1) L Neutrophils (%) (Auto) 61.0 % (45.0-75.0) Lymphocytes (%) (Auto) 32.3 % (20.0-45.0) Monocytes (%) (Auto) 4.7 % (1.0-10.0) Eosinophils (%) (Auto) 1.5 % (0.0-3.0) Basophils (%) (Auto) 0.5 % (0.0-2.0) Sodium Level 138 MMOL/L (136-145) Potassium Level 3.7 MMOL/L (3.5-5.1) Chloride Level 103 MMOL/L (98-107) Carbon Dioxide Level 32 MMOL/L (21-32) Anion Gap 3 mmol/L (5-15) L Blood Urea Nitrogen 5 mg/dL (7-18) L Creatinine 0.9 MG/DL (0.55-1.30) Estimat Glomerular Filtration Rate > 60 mL/min (>60) Glucose Level 107 MG/DL (74-106) #H Uric Acid 5.1 MG/DL (2.6-7.2) Calcium Level 8.6 MG/DL (8.5-10.1) Phosphorus Level 3.5 MG/DL (2.5-4.9) Magnesium Level 1.7 MG/DL (1.8-2.4) L Iron Level 34 ug/dL (50-175) L Total Iron Binding Capacity 194 ug/dL (250-450) L Percent Iron Saturation 18 % (15-50) Unsaturated Iron Binding 160 ug/dL (112-346) Ferritin 103 NG/ML (8-388) Total Bilirubin 0.3 MG/DL (0.2-1.0) Gamma Glutamyl Transpeptidase 83 U/L (5-85) Aspartate Amino Transf (AST/SGOT) 15 U/L (15-37) Alanine Aminotransferase (ALT/SGPT) 29 U/L (12-78) Alkaline Phosphatase 57 U/L (46-116) Total Creatine Kinase 54 U/L (26-308) Pro-B-Type Natriuretic Peptide 157 pg/mL (0-125) H Total Protein 6.2 G/DL (6.4-8.2) L Albumin 2.8 G/DL (3.4-5.0) L Globulin 3.4 g/dL Albumin/Globulin Ratio 0.8 (1.0-2.7) L Triglycerides Level 44 MG/DL (30-150) Cholesterol Level 153 MG/DL (< 200) LDL Cholesterol 69 mg/dL (<100) HDL Cholesterol 70 MG/DL (40-60) H Cholesterol/HDL Ratio 2.2 (3.3-4.4) L Vitamin B12 Level 575 PG/ML (193-986) Folate 16.1 NG/ML (8.6-58.9) Thyroid Stimulating Hormone (TSH) 0.967 uiU/mL (0.358-3.740) Neurologic Exam Objective PHYSICAL EXAMINATION: GENERAL: He is a well-developed and well-nourished, black gentleman, in no acute distress. HEAD: Normocephalic and atraumatic. NECK: No neck rigidity was observed. EENT: Examination benign. NEUROLOGIC EXAMINATION: MENTAL STATUS EXAMINATION: He was awake and alert. He was oriented to self, hospital, and July 2017. He did not know the name of the hospital and did not know the exact date. He was able to recall 3/3 words immediately, but could only remember 2/3 words in 1 minute and 3 minutes. He was able to remember presidents, Trump and Obama, but could not remember presidents prior to that. His mathematical skills were impaired. His visuospatial function was also impaired. SPEECH: He had no dysarthria. LANGUAGE: He had anomia for low-frequency words. CRANIAL NERVE EXAMINATION: II: The visual singh were intact to confrontation testing. III, IV & : The external ocular movements were full and the pupils 3 mm in diameter, equal, round, regular, and reactive to light. V: He had normal facial sensations, and the temporales, masseters, and pterygoids functioned normally. VII: He had normal facial expressions and no facial asymmetry. VIII: He was able to hear well bilaterally and had no nystagmus. IX: The palate moved symmetrically on phonation. X: He had no hoarseness of voice. XI: The sternocleidomastoids and trapezii functioned normally. XII: The tongue was in the midline without any fasciculations or atrophy. MOTOR SYSTEM: The tone was normal in all four extremities. Examination of muscle mass revealed some wasting of both lower extremities. Examination of power revealed G 5/5 power in the upper extremities. In the lower extremities, he had G 5-/5 power except for G 4/5 in the iliopsoas and G 4+/5 in the ankle dorsiflexors and toe extensors. SENSORY EXAMINATION: He complained of altered sensations to pinprick and light touch in a calf length stocking distribution. REFLEXES: Trace+ and bilaterally symmetrical at the biceps, triceps, brachioradialis and knees. 0 at both ankles. The plantar responses were flexor bilaterally. COORDINATION: He performed well on [id number] testing. He was unable to perform pvsw-wd-cizo testing. STANCE & GAIT: Could not be tested, as he refused to stand and walk. Impression/Recommendations Diagnostic Impression 1. Mr. Jojo Monroe is a 57-year-old, right-handed, black gentleman, with past history of hypertension, diabetes mellitus, dyslipidemia, coronary artery disease, closed head trauma at age 20 followed by a posttraumatic seizure disorder, who was hospitalized on 08/15/2017 for increased generalized body aches, chest pain and diabetes out of control. He also complained of increased neuropathic pain involving his lower extremities. In addition, his blood sugars were measured at more than 500. He does have a prior history of seizures, but his last seizure was a few weeks ago. 2. He feels better today. He has been seizure free. His neuropathy discomfort is better. He denies any new neurologic symptoms. He is more cooperative. 3. On neurological examination, at this time, he demonstrates problems with orientation, recent and remote memory, visuospatial function, higher cognitive function, and language. He does have weakness in both lower extremities, however, it is uncertain as to how much of the weakness is true and how much of it is give-way weakness. He also complains of altered sensations in a calf length stocking distribution. His deep tendon reflexes are globally diminished and absent at the ankles. He is unable to stand and walk. 4. Laboratory data obtained thus far revealed an anemia with a hemoglobin of 10.6. His hemoglobin A1c was elevated to 10.7%. His urine toxicology screen was negative and his phenytoin and phenobarbital levels were nonmeasurable. 5. The CT of the brain was benign for acute and chronic pathology. 6. The patient's history and neurological examination are most compatible with history of a seizure disorder, which the patient reports to be posttraumatic. There is a high probability that he has been noncompliant with his therapeutic regimen. 7. He does have a neuropathy involving both lower extremities - it feels better with increase in his Neurontin dose. Recommendations 1. Continue present management. 2. Continue Dilantin 300 mg at bedtime. Attempts should be made to aim for a trough level of 12 to 18 mcg/dL. 3. Will review EEG. 4. Continue Neurontin 300 mg q.8 h. to help him with his neuropathic process. 5. Observe. Jaime Vasques M.D., M.S.PJAIME ARANDA Aug 17, 2017 12:39
--- NOTE | 2017-08-17 13:05 | General Progress Note ---
Assessment/Plan Status: stable Assessment/Plan 1. Chest pain/atypical - in high risk patient for acute coronary syndrome. 2. Hyponatremia. 3. Diabetes type 2, uncontrolled. 4. Noncompliance with medications. 5. Seizure disorder with subtherapeutic medications. 6. Diabetic neuropathy. 7. Anemia. 8. GI and DVT prophylaxis. Plan: Neuro, Cardio,notes are reviewed DC- IV narcotic DC pending cardiology clearance Subjective Constitutional: Reports: malaise Cardiovascular: Reports: no symptoms Respiratory: Reports: no symptoms Allergies: Coded Allergies: No Known Allergies (Unverified , 03/05/16) Objective Last 24 Hour Vital Signs Date Time Temp Pulse Resp B/P (MAP) Pulse Ox O2 Delivery O2 Flow Rate FiO2 08/17/17 08:00 97.7 88 21 119/92 97 Room Air 97.7 08/17/17 04:00 97.0 74 20 119/79 98 Room Air 97.0 08/17/17 04:00 74 08/17/17 00:00 76 08/17/17 00:00 97.7 73 20 117/59 99 Room Air 97.7 08/16/17 20:00 98.0 85 20 134/72 98 Room Air 98.0 08/16/17 20:00 95 08/16/17 16:00 81 Intake and Output 08/16/17 08/17/17 19:00 07:00 Intake Total 610 ml 240 ml Output Total 500 ml Balance 110 ml 240 ml Intake Oral 610 ml 240 ml Output Urine Total 500 ml # Voids 5 # Bowel Movements 1 Laboratory Tests 08/16/17 17:00: Troponin I 0.014 08/17/17 06:20: Troponin I 0.017, White Blood Count 4.8, Red Blood Count 3.33L, Hemoglobin 10.2L , Hematocrit 28.6L, Mean Corpuscular Volume 86, Mean Corpuscular Hemoglobin 30.7 , Mean Corpuscular Hemoglobin Concent 35.7, Red Cell Distribution Width 11.5L, Platelet Count 228, Mean Platelet Volume 6.1L, Neutrophils (%) (Auto) 61.0, Lymphocytes (%) (Auto) 32.3, Monocytes (%) (Auto) 4.7, Eosinophils (%) (Auto) 1.5, Basophils (%) (Auto) 0.5, Sodium Level 138, Potassium Level 3.7, Chloride Level 103, Carbon Dioxide Level 32, Anion Gap 3L, Blood Urea Nitrogen 5L, Creatinine 0.9, Estimat Glomerular Filtration Rate > 60, Glucose Level 107#H, Uric Acid 5.1, Calcium Level 8.6, Phosphorus Level 3.5, Magnesium Level 1.7L, Iron Level 34L, Total Iron Binding Capacity 194L, Percent Iron Saturation 18, Unsaturated Iron Binding 160, Ferritin 103, Total Bilirubin 0.3, Gamma Glutamyl Transpeptidase 83, Aspartate Amino Transf (AST/SGOT) 15, Alanine Aminotransferase (ALT/SGPT) 29, Alkaline Phosphatase 57, Total Creatine Kinase 54, Pro-B-Type Natriuretic Peptide 157H, Total Protein 6.2L, Albumin 2.8L, Globulin 3.4, Albumin/Globulin Ratio 0.8L, Triglycerides Level 44, Cholesterol Level 153, LDL Cholesterol 69, HDL Cholesterol 70H, Cholesterol/HDL Ratio 2.2L, Vitamin B12 Level 575, Folate 16.1, Thyroid Stimulating Hormone (TSH) 0.967 Height (Feet): 5 Height (Inches): 5.00 Weight (Pounds): 140 General Appearance: no apparent distress EENT: PERRL/EOMI Neck: supple Cardiovascular: normal rate Respiratory/Chest: lungs clear Abdomen: soft Extremities: other - b/l feet neuropathy Neurologic: engineering supervisor II-XII grossly normal, other Onesimo Duron MD Aug 17, 2017 13:05
--- NOTE | 2017-08-17 15:05 | Diagnostic Imaging Report ---
Indications: Chest pain Technique: Single day single isotope protocol utilized. Initially, resting images obtained using IV administration 10.5 millicuries 99M technetium Myoview. Subsequently, patient underwent lexiscan stress testing. See cardiology report for details. During Lexiscan infusion, IV administration 31.9 mCi 99 M technetium Myoview. SPECT and planar images obtained. SPECT images gated to 8 phases of the cardiac cycle were also obtained, and reformatted into cine images for evaluation of ejection fraction. Comparison: none Findings: Per cardiology report, patient experienced no symptoms. Per cardiology report, resting EKG demonstrates normal sinus rhythm with premature atrial contractions. There is evidence of an age-indeterminate septal infarct. No EKG changes noted during the infusion. . Imaging, equivocal relative slight decreased perfusion is noted in the inferolateral wall on both the post stress and resting images. No change is noted on the resting images. No reversible perfusion abnormality demonstrated. There is minimal dilatation of the left ventricle . Calculated post stress ejection fraction 55%. No focal wall motion abnormality Impression: Nonischemic clinical response to pharmacologic stress, per cardiology report Nonischemic electrocardiographic response to pharmacologic stress, per cardiology report Equivocal fixed inferolateral perfusion defect; suspect most likely artifactual, possibly due to soft tissue attenuation. Nonetheless, this could represent an infarct Negative for ischemia at level of stress achieved Calculated post stress ejection fraction 55%
[2017-08-17 16:00] VITALS: BP 119/67
--- NOTE | 2017-08-17 16:12 | Nephrology Progress Note ---
Assessment/Plan Problem List: (1) Uncontrolled diabetes mellitus (2) Hyponatremia Assessment 1- Chest pain - r/o ACS 2- DM-uncontrolled 3- HTN 4- HLP 5- Hyponatremia due to high sugar resolved Plan Control BS Per Cardio per orders Subjective ROS Limited/Unobtainable: No Objective Objective Last 24 Hour Vital Signs Date Time Temp Pulse Resp B/P (MAP) Pulse Ox O2 Delivery O2 Flow Rate FiO2 08/17/17 08:00 97.7 88 21 119/92 97 Room Air 97.7 08/17/17 04:00 97.0 74 20 119/79 98 Room Air 97.0 08/17/17 04:00 74 08/17/17 00:00 76 08/17/17 00:00 97.7 73 20 117/59 99 Room Air 97.7 08/16/17 20:00 98.0 85 20 134/72 98 Room Air 98.0 08/16/17 20:00 95 Intake and Output 08/16/17 08/17/17 19:00 07:00 Intake Total 610 ml 240 ml Output Total 500 ml Balance 110 ml 240 ml Intake Oral 610 ml 240 ml Output Urine Total 500 ml # Voids 5 # Bowel Movements 1 Laboratory Tests 08/16/17 17:00: Troponin I 0.014 08/17/17 06:20: Troponin I 0.017, White Blood Count 4.8, Red Blood Count 3.33L, Hemoglobin 10.2L , Hematocrit 28.6L, Mean Corpuscular Volume 86, Mean Corpuscular Hemoglobin 30.7 , Mean Corpuscular Hemoglobin Concent 35.7, Red Cell Distribution Width 11.5L, Platelet Count 228, Mean Platelet Volume 6.1L, Neutrophils (%) (Auto) 61.0, Lymphocytes (%) (Auto) 32.3, Monocytes (%) (Auto) 4.7, Eosinophils (%) (Auto) 1.5, Basophils (%) (Auto) 0.5, Sodium Level 138, Potassium Level 3.7, Chloride Level 103, Carbon Dioxide Level 32, Anion Gap 3L, Blood Urea Nitrogen 5L, Creatinine 0.9, Estimat Glomerular Filtration Rate > 60, Glucose Level 107#H, Uric Acid 5.1, Calcium Level 8.6, Phosphorus Level 3.5, Magnesium Level 1.7L, Iron Level 34L, Total Iron Binding Capacity 194L, Percent Iron Saturation 18, Unsaturated Iron Binding 160, Ferritin 103, Total Bilirubin 0.3, Gamma Glutamyl Transpeptidase 83, Aspartate Amino Transf (AST/SGOT) 15, Alanine Aminotransferase (ALT/SGPT) 29, Alkaline Phosphatase 57, Total Creatine Kinase 54, Pro-B-Type Natriuretic Peptide 157H, Total Protein 6.2L, Albumin 2.8L, Globulin 3.4, Albumin/Globulin Ratio 0.8L, Triglycerides Level 44, Cholesterol Level 153, LDL Cholesterol 69, HDL Cholesterol 70H, Cholesterol/HDL Ratio 2.2L, Vitamin B12 Level 575, Folate 16.1, Thyroid Stimulating Hormone (TSH) 0.967 Height (Feet): 5 Height (Inches): 5.00 Weight (Pounds): 140 General Appearance: no apparent distress TERRA BOSWELL Aug 17, 2017 16:12
--- NOTE | 2017-08-17 16:45 | Electroencephalogram ---
DATE OF PROCEDURE: 08/16/2017 EEG REPORT ATTENDING PHYSICIAN: Onesimo Duron M.D. 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 The purpose of this EEG was to better delineate the type of seizure disorder. TECHNICAL NOTE: This EEG was performed on a [employer] with electrodes placed on the scalp according to the International 10-20 system. [id number] and vlstb-yj-[id number] montages were used. A large array of montages were available for review of the EEG with digital reformatting. The EEG was technically satisfactory and was performed in the awake and drowsy states. OBSERVATIONS: In the best awake state, the background activity consisted of 8.5-9 Hz posteriorly predominant well-developed alpha waveforms, which attenuated on eye opening. Drowsiness was characterized by dissolution of the alpha rhythm and the appearance of slow frequencies in the 4-5 Hz theta range. No focal abnormalities or epileptiform discharges were seen. IMPRESSION: Normal awake and drowsy EEG. Adriano Vasques M.D., M.S.P.H. DR: JAZLYN JOB#: [id number] MTDD
[2017-08-17 20:00] VITALS: BP 140/78
[2017-08-17] MEDS: Dyna-Hex 2% Top Sol 2oz TOPIC SCH (20:20)
[2017-08-17] MEDS: Phenytoin 100mg cap ORAL SCH (20:34)
[2017-08-17] MEDS ORDERED: Levemir Flexpen SUBQ SCH (21:00)
--- NOTE | 2017-08-17 22:56 | Cardiology Progress Note ---
Assessment/Plan Assessment/Plan 1. Non-cardiac chest pain, nuclear stress test was non-ischemic. 2. Coronary artery disease, status post PCI x2 stents two years ago at [facility]. 3. Hypertension, on diet only. 4. Diabetes mellitus. Subjective Subjective Sinus rhythm at 76. Objective Last 24 Hour Vital Signs Date Time Temp Pulse Resp B/P (MAP) Pulse Ox O2 Delivery O2 Flow Rate FiO2 08/17/17 20:00 98.2 70 20 140/78 100 Room Air 98.2 08/17/17 20:00 95 08/17/17 16:00 97.3 76 18 119/67 98 Room Air 97.3 08/17/17 16:00 77 08/17/17 12:00 69 08/17/17 12:00 97.3 73 21 132/76 98 Room Air 97.3 08/17/17 08:00 82 08/17/17 08:00 97.7 88 21 119/92 97 Room Air 97.7 08/17/17 04:00 97.0 74 20 119/79 98 Room Air 97.0 08/17/17 04:00 74 08/17/17 00:00 76 08/17/17 00:00 97.7 73 20 117/59 99 Room Air 97.7 Intake and Output 08/16/17 08/17/17 19:00 07:00 Intake Total 610 ml 240 ml Output Total 500 ml Balance 110 ml 240 ml Intake Oral 610 ml 240 ml Output Urine Total 500 ml # Voids 5 # Bowel Movements 1 2D Echo: Non-ischemic myocardial perfusion imaging study. Laboratory Tests Test 08/17/17 06:20 White Blood Count 4.8 K/UL (4.8-10.8) Red Blood Count 3.33 M/UL (4.70-6.10) L Hemoglobin 10.2 G/DL (14.2-18.0) L Hematocrit 28.6 % (42.0-52.0) L Mean Corpuscular Volume 86 FL (80-99) Mean Corpuscular Hemoglobin 30.7 PG (27.0-31.0) Mean Corpuscular Hemoglobin Concent 35.7 G/DL (32.0-36.0) Red Cell Distribution Width 11.5 % (11.6-14.8) L Platelet Count 228 K/UL (150-450) Mean Platelet Volume 6.1 FL (6.5-10.1) L Neutrophils (%) (Auto) 61.0 % (45.0-75.0) Lymphocytes (%) (Auto) 32.3 % (20.0-45.0) Monocytes (%) (Auto) 4.7 % (1.0-10.0) Eosinophils (%) (Auto) 1.5 % (0.0-3.0) Basophils (%) (Auto) 0.5 % (0.0-2.0) Sodium Level 138 MMOL/L (136-145) Potassium Level 3.7 MMOL/L (3.5-5.1) Chloride Level 103 MMOL/L (98-107) Carbon Dioxide Level 32 MMOL/L (21-32) Anion Gap 3 mmol/L (5-15) L Blood Urea Nitrogen 5 mg/dL (7-18) L Creatinine 0.9 MG/DL (0.55-1.30) Estimat Glomerular Filtration Rate > 60 mL/min (>60) Glucose Level 107 MG/DL (74-106) #H Uric Acid 5.1 MG/DL (2.6-7.2) Calcium Level 8.6 MG/DL (8.5-10.1) Phosphorus Level 3.5 MG/DL (2.5-4.9) Magnesium Level 1.7 MG/DL (1.8-2.4) L Iron Level 34 ug/dL (50-175) L Total Iron Binding Capacity 194 ug/dL (250-450) L Percent Iron Saturation 18 % (15-50) Unsaturated Iron Binding 160 ug/dL (112-346) Ferritin 103 NG/ML (8-388) Total Bilirubin 0.3 MG/DL (0.2-1.0) Gamma Glutamyl Transpeptidase 83 U/L (5-85) Aspartate Amino Transf (AST/SGOT) 15 U/L (15-37) Alanine Aminotransferase (ALT/SGPT) 29 U/L (12-78) Alkaline Phosphatase 57 U/L (46-116) Total Creatine Kinase 54 U/L (26-308) Troponin I 0.017 ng/mL (0.000-0.056) Pro-B-Type Natriuretic Peptide 157 pg/mL (0-125) H Total Protein 6.2 G/DL (6.4-8.2) L Albumin 2.8 G/DL (3.4-5.0) L Globulin 3.4 g/dL Albumin/Globulin Ratio 0.8 (1.0-2.7) L Triglycerides Level 44 MG/DL (30-150) Cholesterol Level 153 MG/DL (< 200) LDL Cholesterol 69 mg/dL (<100) HDL Cholesterol 70 MG/DL (40-60) H Cholesterol/HDL Ratio 2.2 (3.3-4.4) L Vitamin B12 Level 575 PG/ML (193-986) Folate 16.1 NG/ML (8.6-58.9) Thyroid Stimulating Hormone (TSH) 0.967 uiU/mL (0.358-3.740) Objective HEENT: Atraumatic and normocephalic. Anicteric. Pupils are equal, round, and reactive to light and accommodation. Extraocular muscles intact. NECK: JVP less than 5 cm. No carotid bruit. Carotid upstrokes 2+ bilaterally. CARDIOVASCULAR: Normal S1, S2. Regular rate and rhythm. No murmurs, gallops, or rubs. PMI is at fourth intercostal space in the midclavicular line. LUNGS: Clear to auscultation bilaterally. ABDOMEN: Soft, nontender, and nondistended. No hepatosplenomegaly. Positive bowel sounds. EXTREMITIES: No evidence of edema, clubbing, or cyanosis. LINDA CLAIRE Aug 17, 2017 22:56
[2017-08-18] VITALS: BP 111/66
[2017-08-18 04:00] VITALS: BP 149/81
[2017-08-18] MEDS: Norco 5mg/325mg tab ORAL PRN ×2 (04:02→10:08)
[2017-08-18] MEDS: Docusate 100mg cap ORAL SCH ×2 (06:02→12:05)
[2017-08-18] MEDS: NovoLOG Insulin Flexpen SUBQ SCH ×2 (06:11→12:04)
[2017-08-18 08:00] VITALS: BP 141/83
[2017-08-18] MEDS: Heparin 5000 units/ml inj SUBQ SCH (08:32)
--- NOTE | 2017-08-18 09:20 | Nephrology Progress Note ---
Assessment/Plan Problem List: (1) Uncontrolled diabetes mellitus (2) Hyponatremia Assessment 1- Chest pain - r/o ACS 2- DM-uncontrolled 3- HTN 4- HLP 5- Hyponatremia due to high sugar resolved Plan Control BS Per Cardio per orders Subjective ROS Limited/Unobtainable: No Constitutional: Reports: malaise Objective Objective Last 24 Hour Vital Signs Date Time Temp Pulse Resp B/P (MAP) Pulse Ox O2 Delivery O2 Flow Rate FiO2 08/18/17 04:00 98.2 83 20 149/81 98 Room Air 98.2 08/18/17 04:00 72 08/18/17 00:00 81 08/18/17 00:00 97.7 76 20 111/66 98 Room Air 97.7 08/17/17 20:00 98.2 70 20 140/78 100 Room Air 98.2 08/17/17 20:00 95 08/17/17 16:00 97.3 76 18 119/67 98 Room Air 97.3 08/17/17 16:00 77 08/17/17 12:00 69 08/17/17 12:00 97.3 73 21 132/76 98 Room Air 97.3 Intake and Output 08/17/17 08/18/17 19:00 07:00 Intake Total 600 ml 900 ml Output Total 900 ml Balance -300 ml 900 ml Intake Oral 600 ml 900 ml Output Urine Total 900 ml # Voids 3 # Bowel Movements 1 Height (Feet): 5 Height (Inches): 5.00 Weight (Pounds): 140 General Appearance: no apparent distress Objective no change TERRA BOSWELL 30, 2018 09:20
--- NOTE | 2017-08-18 10:58 | Neurology Progress Note ---
Interim History Interim History ROS Limited/Unobtainable: No Interim History Mr. Monroe feels unwell. He has been seizure free. His neuropathy discomfort is about the same. He complains of generalized body pain. He feels that his schizophrenia is getting worse but could no elaborate on it. He denies any new neurologic symptoms. He is more cooperative today. Review of Systems Neuro Review of Systems Benign. Objective Physical Exam Last Vital Signs Date Time Temp Pulse Resp B/P (MAP) Pulse Ox O2 Delivery O2 Flow Rate FiO2 08/18/17 10:08 98.2 08/18/17 08:00 73 18 141/83 98 Room Air Neurologic Exam Objective PHYSICAL EXAMINATION: GENERAL: He is a well-developed and well-nourished, black gentleman, in no acute distress. HEAD: Normocephalic and atraumatic. NECK: No neck rigidity was observed. EENT: Examination benign. NEUROLOGIC EXAMINATION: MENTAL STATUS EXAMINATION: He was awake and alert. He was oriented to self, hospital, and July 2017. He did not know the name of the hospital and did not know the exact date. He was able to recall 3/3 words immediately, but could only remember 2/3 words in 1 minute and 3 minutes. He was able to remember presidents, Trump and Obama, but could not remember presidents prior to that. His mathematical skills were impaired. His visuospatial function was also impaired. SPEECH: He had no dysarthria. LANGUAGE: He had anomia for low-frequency words. CRANIAL NERVE EXAMINATION: II: The visual singh were intact to confrontation testing. III, IV & : The external ocular movements were full and the pupils 3 mm in diameter, equal, round, regular, and reactive to light. V: He had normal facial sensations, and the temporales, masseters, and pterygoids functioned normally. VII: He had normal facial expressions and no facial asymmetry. VIII: He was able to hear well bilaterally and had no nystagmus. IX: The palate moved symmetrically on phonation. X: He had no hoarseness of voice. XI: The sternocleidomastoids and trapezii functioned normally. XII: The tongue was in the midline without any fasciculations or atrophy. MOTOR SYSTEM: The tone was normal in all four extremities. Examination of muscle mass revealed some wasting of both lower extremities. Examination of power revealed G 5/5 power in the upper extremities. In the lower extremities, he had G 5-/5 power except for G 4/5 in the iliopsoas and G 4+/5 in the ankle dorsiflexors and toe extensors. SENSORY EXAMINATION: He complained of altered sensations to pinprick and light touch in a calf length stocking distribution. REFLEXES: Trace+ and bilaterally symmetrical at the biceps, triceps, brachioradialis and knees. 0 at both ankles. The plantar responses were flexor bilaterally. COORDINATION: He performed well on [id number] testing. He was unable to perform [id number] testing. STANCE & GAIT: Could not be tested, as he refused to stand and walk. Impression/Recommendations Diagnostic Impression 1. Mr. Jojo Monroe is a 57-year-old, right-handed, black gentleman, with past history of hypertension, diabetes mellitus, dyslipidemia, coronary artery disease, closed head trauma at age 20 followed by a posttraumatic seizure disorder, who was hospitalized on 08/15/2017 for increased generalized body aches, chest pain and diabetes out of control. He also complained of increased neuropathic pain involving his lower extremities. In addition, his blood sugars were measured at more than 500. He does have a prior history of seizures, but his last seizure was a few weeks ago. 2. He feels unwell. He has been seizure free. His neuropathy discomfort is about the same. He complains of generalized body pain. He feels that his schizophrenia is getting worse but could no elaborate on it. He denies any new neurologic symptoms. He is more cooperative today. 3. On neurological examination, at this time, he demonstrates problems with orientation, recent and remote memory, visuospatial function, higher cognitive function, and language. He does have weakness in both lower extremities, however, it is uncertain as to how much of the weakness is true and how much of it is give-way weakness. He also complains of altered sensations in a calf length stocking distribution. His deep tendon reflexes are globally diminished and absent at the ankles. He is unable to stand and walk. 4. Laboratory data obtained thus far revealed an anemia with a hemoglobin of 10.6. His hemoglobin A1c was elevated to 10.7%. His urine toxicology screen was negative and his phenytoin and phenobarbital levels were nonmeasurable. 5. The CT of the brain was benign for acute and chronic pathology. 6. the EEG was normal. 7. The patient's history and neurological examination are most compatible with history of a seizure disorder, which the patient reports to be posttraumatic. There is a high probability that he has been noncompliant with his therapeutic regimen. 7. He does have a neuropathy involving both lower extremities - it feels about the same as yesterday. Recommendations 1. Continue present management. 2. Continue Dilantin 300 mg at bedtime. Attempts should be made to aim for a trough level of 12 to 18 mcg/dL. 3. Continue Neurontin 300 mg q.8 h. to help him with his neuropathic process. 4. Psychiatric help. 5. Observe. Jaime Vasques M.D., M.S.P.H. JAIME VASQUES Aug 18, 2017 10:58
[2017-08-18 12:00] VITALS: BP 136/76
[2017-08-18] MEDS ORDERED: DILANTIN100 MG ORAL (12:40)
[2017-08-18] MEDS ORDERED: NEURONTIN300 MG ORAL (12:40)
[2017-08-18] MEDS ORDERED: NORCO 5-325 TA1 EACH ORAL (12:40)
--- NOTE | 2017-08-18 16:07 | Internal Med Progress Note ---
Subjective Date of Service: Aug 18, 2017 Physician Name Matti Melgar Attending Physician Onesimo Duron MD Current Medications Medications (Trade) Dose Ordered Sig/Nicole Route PRN Reason Start Time Stop Time Status Last Admin Dose Admin Acetaminophen (Tylenol) 650 mg Q6H PRN ORAL Mild Pain/Temp > 100.5 08/16/17 00:15 09/15/17 00:14 08/17/17 03:09 Acetaminophen/ Hydrocodone Bitart (Shirland 5/325) 1 tab Q6H PRN ORAL Moderate Pain (Pain Scale 4-6) 08/16/17 00:45 08/23/17 00:44 08/18/17 10:08 Chlorhexidine Gluconate (Bernadette-Hex 2%) 1 applic DAILY@1999 TOPIC 08/16/17 20:00 09/15/17 19:59 08/17/17 20:20 Dextrose (Dextrose 50%) STAT PRN IV Hypoglycemia 08/16/17 00:15 09/15/17 00:14 Docusate Sodium (Colace) 100 mg TIAC ORAL 08/16/17 11:30 09/15/17 11:29 08/18/17 12:05 Gabapentin (Neurontin) 900 mg EVERY 8 HOURS ORAL 08/17/17 14:00 09/15/17 21:59 08/18/17 14:07 Heparin Sodium (Porcine) (Heparin 5000 units/ml) 5,000 units EVERY 12 HOURS SUBQ 08/16/17 09:00 09/15/17 08:59 08/18/17 08:32 Insulin Aspart (NovoLOG) BEFORE MEALS AND HS SUBQ 08/16/17 06:30 09/15/17 06:29 08/18/17 12:04 Insulin Detemir (Levemir) 15 units BEDTIME SUBQ 08/17/17 21:00 09/15/17 20:59 08/17/17 20:42 Pantoprazole (Protonix) 40 mg ACBREAKFAST ORAL 08/16/17 06:30 09/15/17 06:29 08/18/17 06:02 Phenytoin (Dilantin) 300 mg QHS ORAL 08/16/17 21:00 09/15/17 08:59 08/17/17 20:34 Allergies: Coded Allergies: No Known Allergies (Unverified , 10/15/16) ROS Limited/Unobtainable: No Constitutional: Reports: no symptoms HEENT: Reports: no symptoms Cardiovascular: Reports: chest pain Respiratory: Reports: no symptoms Gastrointestinal/Abdominal: Reports: no symptoms Genitourinary: Reports: no symptoms Neurologic/Psychiatric: Reports: no symptoms Subjective 57 YO M admitted with chest pain. Cover for Int Med-Dr Duron. Objective Last Vital Signs Date Time Temp Pulse Resp B/P (MAP) Pulse Ox O2 Delivery O2 Flow Rate FiO2 08/18/17 12:00 98.2 68 18 136/76 96 Room Air 98.2 General Appearance: WD/WN, no apparent distress, alert EENT: PERRL/EOMI, normal ENT inspection, TMs normal Neck: non-tender, normal alignment, supple Cardiovascular: normal peripheral pulses, normal rate, regular rhythm, no gallop/murmur, no JVD Respiratory/Chest: chest wall non-tender, lungs clear, normal breath sounds, no respiratory distress, no accessory muscle use Abdomen: normal bowel sounds, non tender, soft, no organomegaly, no mass Extremities: normal range of motion, non-tender 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 Complete 08/15/17 20:54 Rectum VRE Culture - Final Enterococcus Faecium - Vre Complete Intake and Output 08/17/17 08/18/17 19:00 07:00 Intake Total 600 ml 900 ml Output Total 900 ml Balance -300 ml 900 ml Intake Oral 600 ml 900 ml Output Urine Total 900 ml # Voids 3 # Bowel Movements 1 Assessment/Plan Assessment/Plan Assessment/Plan 1. Chest pain/atypical - in high risk patient for acute coronary syndrome. 2. Hyponatremia. 3. Diabetes type 2, uncontrolled. 4. Noncompliance with medications. 5. Seizure disorder with subtherapeutic medications. 6. Diabetic neuropathy. 7. Anemia. 8. GI and DVT prophylaxis. Plan: Neuro, Cardio,notes are reviewed DC- IV narcotic DC today after cardiology clearance MATTI MELGAR Aug 18, 2017 16:07
--- NOTE | 2017-08-18 23:09 | Cardiology Progress Note ---
Assessment/Plan Assessment/Plan 1. Non-cardiac chest pain, nuclear stress test was non-ischemic. 2. Coronary artery disease, status post PCI x2 stents two years ago at [facility]. 3. Hypertension, on diet only. 4. Diabetes mellitus. Subjective Subjective Sinus rhythm at 68. Objective Last 24 Hour Vital Signs Date Time Temp Pulse Resp B/P (MAP) Pulse Ox O2 Delivery O2 Flow Rate FiO2 08/18/17 12:00 98.2 68 18 136/76 96 Room Air 98.2 08/18/17 12:00 67 08/18/17 11:05 98.2 08/18/17 10:08 98.2 08/18/17 08:00 98.2 73 18 141/83 98 Room Air 98.2 08/18/17 08:00 78 08/18/17 04:00 98.2 83 20 149/81 98 Room Air 98.2 08/18/17 04:00 72 08/18/17 00:00 81 08/18/17 00:00 97.7 76 20 111/66 98 Room Air 97.7 Intake and Output 08/17/17 08/18/17 19:00 07:00 Intake Total 600 ml 900 ml Output Total 900 ml Balance -300 ml 900 ml Intake Oral 600 ml 900 ml Output Urine Total 900 ml # Voids 3 # Bowel Movements 1 2D Echo: Non-ischemic myocardial perfusion imaging study. Objective HEENT: Atraumatic and normocephalic. Anicteric. Pupils are equal, round, and reactive to light and accommodation. Extraocular muscles intact. NECK: JVP less than 5 cm. No carotid bruit. Carotid upstrokes 2+ bilaterally. CARDIOVASCULAR: Normal S1, S2. Regular rate and rhythm. No murmurs, gallops, or rubs. PMI is at fourth intercostal space in the midclavicular line. LUNGS: Clear to auscultation bilaterally. ABDOMEN: Soft, nontender, and nondistended. No hepatosplenomegaly. Positive bowel sounds. EXTREMITIES: No evidence of edema, clubbing, or cyanosis. LINDA CLAIRE Aug 18, 2017 23:09
--- NOTE | 2017-08-20 10:37 | Discharge Summary ---
Discharge Summary Discharge Summary Discharge Summary DATE OF ADMISSION: 08/15/2017 DATE OF DISCHARGE: 08/18/2017 REASON FOR ADMISSION: 57 years old male with history of diabetes, hypertension, seizure disorder, coronary artery disease ,status post 4 PCI with 2 stents 2 years ago at [facility], presented to emergency department with generalized body aches and chest pain. Patient also reported increased pain in his legs and had prior history of neuropathy. Blood sugar by paramedics was above 500. Urine toxicology screen was negative,. Upon evaluation in ED, stable vital signs. Blood sugar 400 with normal anion gap and bicarbonate. Hyponatremia noted. Troponin negative. CK 85. pro BNP 678. EKG showed normal sinus rhythm with LVH. Dilantin level subtherapeutic. Hemoglobin 10.6 hematocrit 29. Chest pain was atypical on presentation, however with this patient being a high risk for acute coronary syndrome , he was admitted for further management with diagnosis of chest pain , rule out acute coronary syndrome, history of coronary artery disease, hyponatremia, anemia, diabetes mellitus out of control, seizure disorder with subtherapeutic Dilantin level, diabetic neuropathy, anemia. HOSPITAL COURSE: Patient admitted to telemetry floor. Cardiology, nephrology and neurology consults requested. Serial troponin 4 was negative. ECG revealed no acute ischemic changes. Patient was ruled out for acute NM. Certified Marine Mechanic stated that patient had atypical chest pain however due to the risk factors for acute coronary syndrome , stress test was done, which was nonischemic with calculated ejection fraction of 55%. Plavix continued. Blood pressure was stable, controlled with diet only as per patient. Lipid panel was within normal limits. Statin was continued. It Infrastructure Manager closely followed patient. Per headhunter, hyponatremia was due to hyperglycemia. Blood sugar was managed with the long acting Levemir and sliding scale of insulin as needed. Hemoglobin A1c 10.7, clearly not at goal. Patient needs further optimization of the anti-glycemic regimen as outpatient as well as compliance with medication regimen. Sodium normalized prior to discharge -138. DVT prophylaxis provided along with GI prophylaxis. Bowel regimen instituted. It Infrastructure Manager closely followed patient. EEG was normal. CT head revealed no acute intracranial pathology. Neurologist increased Dilantin dose, advised on compliance with medication regimen and keep Dilantin level in therapeutic range by following with primary care provider on the regular basis. Patient was on seizure precautions and was observe for any paroxysmal events. No seizure activity while in the hospital. Anemia workup was consistent with anemia of chronic disease. Hemoglobin and hematocrit remained at baseline. Patient clinically improved and was stable for discharge. FINAL DIAGNOSES: 1. Noncardiac chest pain 2. Coronary artery disease, status post PCI 2 stents 3. Diabetes mellitus out of control 4. Neuropathy bilateral lower extremities 5. Anemia 6. Seizure disorder posttraumatic. 7. Hypertension 8. Hyperlipidemia DISCHARGE MEDICATIONS: See Medication Reconciliation list. DISCHARGE INSTRUCTIONS: Patient was discharged home Follow up with primary care provider in one week. I have been assigned to dictate discharge summary for this account. I was not involved in the patient's management. Abdiaziz (GersonMariluz acosta NP Aug 20, 2017 10:37
== END 2017-08-18 16:45 | disposition home or self-care (01) | DRG 198 ==
LOC: EDBD 17:37 → EMR 18:00 → 2E 20:23 → EDBEDREQ 20:47
PROC: 02HV33Z Insertion of Infusion Device into Superior Vena Cava, Percutaneous Approach (ICD-10-PCS; principal; 2017-08-16)
DX: R07.89 Other chest pain (principal); I25.10 Atherosclerotic heart disease of native coronary artery without angina pectoris; E11.40 Type 2 diabetes mellitus with diabetic neuropathy, unspecified; E11.65 Type 2 diabetes mellitus with hyperglycemia; E87.1 Hypo-osmolality and hyponatremia; Z79.4 Long term (current) use of insulin; G40.909 Epilepsy, unspecified, not intractable, without status epilepticus; Z91.14 Patient's other noncompliance with medication regimen; D64.9 Anemia, unspecified; Z95.5 Presence of coronary angioplasty implant and graft; E78.5 Hyperlipidemia, unspecified; F43.10 Post-traumatic stress disorder, unspecified; V80.010S Animal-rider injured by fall from or being thrown from horse in noncollision accident, sequela; R10.84 Generalized abdominal pain
CPT/HCPCS: 36415; 36569; 70450; 71045; 76937; 78452; 80048; 80053; 80061; 80184; 80185; 80307; 81003; 82550; 82553; 82607; 82728; 82746; 82962; 82977; 83036; 83540; 83550; 83735; 83880; 84100; 84443; 84484; 84550; 85025; 86140; 87081; 93005; 93017; 95819; 99285; J1815; J2785; S5561

== ENCOUNTER 2018-09-20 03:15 | Inpatient (IN) | payer OTHER ==
[~2018-09-20] VITALS: Ht 165.1 cm; Wt 63.5 kg
[~2018-09-20 03:15] MED LIST changes: +CLOPIDOGREL75 MG ORAL; +DILANTIN100 MG ORAL; +GABAPENTIN300 MG ORAL; +NEURONTIN300 MG ORAL; +NORCO 5-325 TA1 EAC1 ORAL; +NORCO 5-325 TA1 EACH ORAL; +PHENOBARBITAL32.4 MG PO; +PHENYTOIN SODI100 MG ORAL; +SIMVASTATIN20 MG ORAL
[2018-09-20] MEDS ORDERED: ASPIR 8181 MG ORAL (03:21)
[2018-09-20] MEDS ORDERED: PLAVIX75 MG ORAL (03:21)
[2018-09-20 03:31] VITALS: BP 187/85
--- NOTE | 2018-09-20 03:35 | NUR ---
ED Nurse Note: Patient was brought by RA from [place] due to seizure. Patient states that he is not a homless and has adress. AAO x4, VSS at this time, patient has severe scars all over his body.
[2018-09-20] MEDS ORDERED: Ketorolac 30mg Inj IV ONE (03:45)
--- NOTE | 2018-09-20 03:50 | Emergency Room Report ---
History of Present Illness General Chief Complaint: Chest Pain Source: Patient Present Illness HPI Is a 58-year-old -Faroese male with history of CAD with previous IL. He is also noncompliant with medication with diabetes and high blood pressure. He said he had recent stent 6 months ago done at [facility]. He presents with chief complaint of chest pain. [place] and developed chest pain. Similar complaint in the past. Anus 10 out of 10. Substernal area. No radiation but no nausea no vomiting. No fever chills. Denies any other complaints. EMS gave him aspirin and nitroglycerin without any relief. Patient is asking for IV narcotics. Allergies: Coded Allergies: No Known Allergies (Unverified , 03/05/16) Patient History Past Medical History: see triage record, old chart reviewed, DM, HTN, IL, CAD Past Surgical History: other Pertinent Family History: none Social History: Reports: alcohol use; Denies: smoking Immunizations: other Reviewed Nursing Documentation: PMH: Agreed; PSxH: Agreed Nursing Documentation-PMH Past Medical History: No History, Except For Hx Hypertension: Yes - HTN Hx COPD: Yes - COPD, PNEUMONIA Hx Diabetes: Yes Hx Cancer: No Hx Gastrointestinal Problems: No Hx Neurological Problems: Yes - seizures Hx Seizures: Yes Review of Systems Eye: Denies: eye pain, blurred vision ENT: Denies: ear pain, nose congestion, throat swelling Respiratory: Denies: cough, shortness of breath Cardiovascular: Reports: chest pain; Denies: palpitations Gastrointestinal: Denies: abdominal pain, diarrhea, nausea, vomiting Musculoskeletal: Denies: back pain, joint pain Skin: Denies: rash Neurological: Denies: headache, numbness Endocrine: Denies: increased thirst, increased urine Hematologic/Lymphatic: Denies: easy bruising All Other Systems: negative except mentioned in HPI Physical Exam Vital Signs Date Time Temp Pulse Resp B/P (MAP) Pulse Ox O2 Delivery O2 Flow Rate FiO2 09/20/18 03:11 98.2 84 18 187/85 97 Room Air vitals with high blood pressure Sp02 EP Interpretation: reviewed, normal General Appearance: well appearing, no apparent distress, alert, other - Strong smell of alcohol beverage on breath Head: normocephalic, atraumatic Eyes: bilateral eye PERRL, bilateral eye EOMI ENT: hearing grossly normal, normal pharynx Neck: full range of motion, supple, no meningismus Respiratory: chest non-tender, lungs clear, normal breath sounds Cardiovascular #1: regular rate, rhythm, no murmur Gastrointestinal: normal bowel sounds, non tender, no mass, no organomegaly, no bruit, non-distended Musculoskeletal: back normal, gait/station normal, normal range of motion Neurologic: alert, oriented x3 Psychiatric: mood/affect normal Skin: warm/dry Medical Decision Making Diagnostic Impression: Primary Impression: Chest pain Qualified Codes: R07.9 - Chest pain, unspecified Additional Impressions: Uncontrolled diabetes mellitus Qualified Codes: E10.65 - Type 1 diabetes mellitus with hyperglycemia Cocaine abuse Noncompliance Opioid dependence Qualified Codes: F11.20 - Opioid dependence, uncomplicated ER Course Patient presents with atypical chest pain. He has multiple risk factors however. He keep asking for narcotics. On the [facility] system he gets frequent narcotics for hydrocodone 10 mg. Patient said he had a stent 6 months ago at [facility] but on the [employer] system he has been in a half-way facility for almost a year. Patient initially refused any blood work done without being pain medication. I am uncomfortable giving patient IV narcotics in light of his alcohol abuse and chronic pain issue. Patient finally agreed to have IV done. I place a left EJ line for blood work. He slept through the night. His troponin is negative you know he complaining of pain for over 6 hours. His chest pain is atypical in nature but he does have a lot of risk factors with noncompliance and previous MIs and stent. I suspect a strong drug seeking component and opioid dependency this patient. Because of his risk factor, will admit for further workup and chest pain rule out. I discussed the case with Dr. Javier for admission. Lab Results Impression labs with elevated glucose EKG Diagnostic Results Rate: normal Rhythm: NSR ST Segments: no acute changes ASA given to the pt in ED: No - Given by EMS Rhythm Strip Diag. Results EP Interpretation: yes Rate: 89 Rhythm: NSR, no PVC's, no ectopy Chest X-Ray Diagnostic Results Chest X-Ray Diagnostic Results : # of Views/Limited/Complete: 1 View Indication: Chest Pain EP Interpretation: Yes Interpretation: no consolidation, no effusion, no pneumothorax, no acute cardiopulmonary disease Impression: No acute disease Electronically Signed by: Jac Vasquez MD Last Vital Signs Date Time Temp Pulse Resp B/P (MAP) Pulse Ox O2 Delivery O2 Flow Rate FiO2 09/20/18 03:31 84 18 Room Air 09/20/18 03:31 98.2 187/85 97 Status: improved Disposition: ADMITTED INPATIENT Condition: Serious Jac Vasquez MD September 20, 2018 03:50
[2018-09-20] MEDS ORDERED: HYDROcodone/Acetamin 5/325 tab ORAL ONE (04:15)
[2018-09-20 04:29] LABS: APPEARANCE,URINE CLEAR; BASOPHILS % (AUTO) 0.5 % (0.0-2.0); BILIRUBIN, URINE NEGATIVE (NEGATIVE); COLOR,URINE PALE YELLOW; EOSINOPHILS % (AUTO) 0.2 % (0.0-3.0); GLUCOSE, URINE (UA) 4+ (NEGATIVE); HEMOGLOBIN 11.1 G/DL (14.2-18.0); KETONES,URINE 3+ (NEGATIVE); LEUKOCYTE ESTERASE ,URINE NEGATIVE (NEGATIVE); LYMPHOCYTES % (AUTO) 11.5 % (20.0-45.0); MEAN CORPUSCULAR VOLUME 86 FL (80-99); MONOCYTES % (AUTO) 8.4 % (1.0-10.0); NEUTROPHILS % (AUTO) 79.5 % (45.0-75.0); NITRITE,URINE NEGATIVE (NEGATIVE); PH,URINE 5 (4.5-8.0); PLATELET COUNT 194 K/UL (150-450); PROTEIN,URINE 3+ (NEGATIVE); RED BLOOD COUNT 3.72 M/UL (4.70-6.10); RED CELL DISTRIBUTION WIDTH 10.9 % (11.6-14.8); UROBILINOGEN,URINE NORMAL MG/DL (0.0-1.0); WHITE BLOOD COUNT 6.4 K/UL (4.8-10.8)
--- NOTE | 2018-09-20 04:34 | NUR ---
ED Nurse Note: Patient was medicated, resting in the bed, no acute distress noticed. VSS at this time.
[2018-09-20 04:39] LABS: ANION GAP 21 mmol/L (5-15); BLOOD UREA NITROGEN 14 mg/dL (7-18); CALCIUM 9.8 MG/DL (8.5-10.1); CARBON DIOXIDE 20 MMOL/L (21-32); CHLORIDE 99 MMOL/L (98-107); CREATININE 1.1 MG/DL (0.55-1.30); POTASSIUM 4.1 MMOL/L (3.5-5.1); SODIUM 139 MMOL/L (136-145)
[2018-09-20 04:52] LABS: ALANINE AMINOTRANSFERASE 50 U/L (12-78); ALBUMIN 4.1 G/DL (3.4-5.0); ALKALINE PHOSPHATASE 98 U/L (46-116); ASPARTATE AMINO TRANSFERASE 33 U/L (15-37); BILIRUBIN,TOTAL 0.4 MG/DL (0.2-1.0); CKMB 3.3 NG/ML (0.0-3.6); CREATINE KINASE 250 U/L (26-308)
--- NOTE | 2018-09-20 07:02 | NUR ---
ED Nurse Note: Tryed to give report, unccessfully. Bed is not ready yet.
[2018-09-20 07:26] VITALS: BP 174/88
--- NOTE | 2018-09-20 07:38 | NUR ---
ED Nurse Note: Received pt from PA Felix. Pt is laying on bed comfortably, no signs of acute distress. Lung sounds clear, does not complain of pain michelle. Attempted to give report but "[address] room is still occupied, RN could not take the report at this time due to having to transfer current pt upstair to another floor first".
--- NOTE | 2018-09-20 08:12 | NUR ---
ED Nurse Note: Attempted the second time to give report to [address] but RN is not available to take report.
--- NOTE | 2018-09-20 08:29 | NUR ---
ED Nurse Note: Report given to PA Parr at ext [phone]. Pt to be transfered to room 220-[facility] on [facility] with oxygen, emergency box, and belongings.
--- NOTE | 2018-09-20 10:35 | Diagnostic Imaging Report ---
Indication: Chest pain Comparison: 08/15/2017 A single view chest radiograph was obtained. Findings: No definite infiltrate or pulmonary vascular congestion identified. The heart is normal size. The aorta is mildly enlarged consistent with atherosclerotic vascular disease. The bones are osteopenic. Impression: No acute disease
[2018-09-20] MEDS: HYDROcodone/Acetamin 5/325 tab ORAL PRN ×2 (11:52→17:19)
[2018-09-20] MEDS: NovoLOG Insulin Flexpen SUBQ SCH ×3 (11:53→21:24)
[2018-09-20 12:00] VITALS: BP 183/97
--- NOTE | 2018-09-20 12:07 | NUR ---
Social Service Note SW met with patient to assess for homelessness. Patient is alert, oriented and verbally responsive. Patient denies being homeless and states he has a place to stay upon discharge. Patient states he may return to to the address provided in [place] or another location of choice. GÓMEZ met with primary nurse who patient indicated that he was homeless too. SW and nurse both met with patient to clarify. Patient has a history of homelessness and has been in shelters previously however at this time patient has a destination upon discharge and doesn't require homeless services. Patient's PCP Dr. Rashaad Isaac, [address] [facility] [address] . SW encouraged patient if he was planning to live in the [place] area to contact [facility] [phone] to find a closer provider. Patient stated that he would keep that in mind but currently he is happy with his provider. Patient indicated requiring transportation upon discharge, bus tokens or taxi voucher available. Will monitor and be available as needed.
[2018-09-20] MEDS ORDERED: NovoLOG Insulin Flexpen SUBQ SCH (12:30)
[2018-09-20 16:30] VITALS: BP 171/84
[2018-09-20] MEDS: PHENobarbital 32.4mg tab ORAL SCH (17:22)
--- NOTE | 2018-09-20 17:41 | Cardiology Report ---
APPROVED REPORT EKG Measurement Heart [id number] Sinus arrhythmia Possible Left atrial enlargement Borderline ECG
[2018-09-20] MEDS ORDERED: Heparin1,000 units/500ml Premix(Conc:2 units/ml) IV PRN (17:45)
[2018-09-20] MEDS ORDERED: Lidocaine 1% Plain 30 ml INJ PRN (17:45)
--- NOTE | 2018-09-20 18:05 | Cardiac Electrophysiology PN ---
Subjective Subjective [id number] Objective Last 24 Hour Vital Signs Date Time Temp Pulse Resp B/P (MAP) Pulse Ox O2 Delivery O2 Flow Rate FiO2 09/20/18 17:49 98.2 09/20/18 17:16 84 171/84 09/20/18 16:30 98.2 80 20 171/84 (113) 98 84 09/20/18 15:18 77 09/20/18 12:00 99.0 84 24 183/97 (125) 97 84 09/20/18 11:52 183/93 09/20/18 11:33 82 09/20/18 09:48 Room Air 09/20/18 08:29 98.2 98 22 174/88 97 Room Air 09/20/18 07:26 98.2 98 22 17488 97 Room Air 09/20/18 04:25 98.2 09/20/18 04:25 98.2 09/20/18 03:31 84 18 Room Air 09/20/18 03:31 98.2 18 18785 97 Room Air 09/20/18 03:11 98.2 84 18 187 97 Room Air Intake and Output 09/19/18 09/20/18 18:59 06:59 # Voids 1 Laboratory Tests Test 09/20/18 04:10 09/20/18 05:00 White Blood Count 6.4 K/UL (4.8-10.8) Red Blood Count 3.72 M/UL (4.70-6.10) L Hemoglobin 11.1 G/DL (14.2-18.0) L Hematocrit 32.0 % (42.0-52.0) L Mean Corpuscular Volume 86 FL (80-99) Mean Corpuscular Hemoglobin 29.9 PG (27.0-31.0) Mean Corpuscular Hemoglobin Concent 34.8 G/DL (32.0-36.0) Red Cell Distribution Width 10.9 % (11.6-14.8) L Platelet Count 194 K/UL (150-450) Mean Platelet Volume 5.9 FL (6.5-10.1) L Neutrophils (%) (Auto) 79.5 % (45.0-75.0) H Lymphocytes (%) (Auto) 11.5 % (20.0-45.0) L Monocytes (%) (Auto) 8.4 % (1.0-10.0) Eosinophils (%) (Auto) 0.2 % (0.0-3.0) Basophils (%) (Auto) 0.5 % (0.0-2.0) Prothrombin Time 10.2 SEC (9.30-11.50) Prothromb Time International Ratio 1.0 (0.9-1.1) Activated Partial Thromboplast Time 23 SEC (23-33) Urine Color Pale yellow Urine Appearance Clear Urine pH 5 (4.5-8.0) Urine Specific [place] 1.015 (1.005-1.035) Urine Protein 3+ (NEGATIVE) H Urine Glucose (UA) 4+ (NEGATIVE) H Urine Ketones 3+ (NEGATIVE) H Urine Blood 5+ (NEGATIVE) H Urine Nitrite Negative (NEGATIVE) Urine Bilirubin Negative (NEGATIVE) Urine Urobilinogen Normal MG/DL (0.0-1.0) Urine Leukocyte Esterase Negative (NEGATIVE) Urine RBC 5-10 /HPF (0 - 0) H Urine WBC 0-2 /HPF (0 - 0) Urine Squamous Epithelial Cells Occasional /LPF Urine Bacteria Occasional /HPF (NONE) Sodium Level 139 MMOL/L (136-145) Potassium Level 4.1 MMOL/L (3.5-5.1) Chloride Level 99 MMOL/L (98-107) Carbon Dioxide Level 20 MMOL/L (21-32) L Anion Gap 21 mmol/L (5-15) H Blood Urea Nitrogen 14 mg/dL (7-18) Creatinine 1.1 MG/DL (0.55-1.30) Estimat Glomerular Filtration Rate > 60 mL/min (>60) Glucose Level 380 MG/DL (74-106) H Calcium Level 9.8 MG/DL (8.5-10.1) Total Bilirubin 0.4 MG/DL (0.2-1.0) Aspartate Amino Transf (AST/SGOT) 33 U/L (15-37) Alanine Aminotransferase (ALT/SGPT) 50 U/L (12-78) Alkaline Phosphatase 98 U/L (46-116) Total Creatine Kinase 250 U/L (26-308) Creatine Kinase MB 3.3 NG/ML (0.0-3.6) Creatine Kinase MB Relative Index 1.3 Troponin I 0.000 ng/mL (0.000-0.056) 0.000 ng/mL (0.000-0.056) Pro-B-Type Natriuretic Peptide 248 pg/mL (0-125) H Total Protein 8.3 G/DL (6.4-8.2) H Albumin 4.1 G/DL (3.4-5.0) Globulin 4.2 g/dL Albumin/Globulin Ratio 1.0 (1.0-2.7) Urine Opiates Screen Negative (NEGATIVE) Urine Barbiturates Screen Negative (NEGATIVE) Phencyclidine (PCP) Screen Negative (NEGATIVE) Urine Amphetamines Screen Negative (NEGATIVE) Urine Benzodiazepines Screen Negative (NEGATIVE) Urine Cocaine Screen Positive (NEGATIVE) H Urine Marijuana (THC) Screen Negative (NEGATIVE) Serum Alcohol 37 mg/dL Microbiology Date/Time Source Procedure Growth Status 09/20/18 16:40 Nasal Nares - Final Complete 09/20/18 16:40 Nasal Nares - Final Complete Juan Martin MD September 20, 2018 18:05
[2018-09-20] MEDS ORDERED: Lexiscan 0.4mg/5ml syringe IV PRN (18:15)
[2018-09-20] MEDS ORDERED: cloNIDine 0.2mg Tab ORAL PRN (18:15)
[2018-09-20 19:05] VITALS: BP 164/93
--- NOTE | 2018-09-20 19:46 | NUR ---
NURSE NOTES: Pt received from PA Damon alert and oriented x4 with no acute s/s of distress. Pt is asking for him PRN Morphine but RN stated that if his VSS stable with no contraindications, pt verbalized understanding. IV site asymptomatic and patent, Left EJ 20g saline lock. Bed in lowest position, bed alarm on. Call light and belongings within reach.
--- NOTE | 2018-09-20 19:51 | NUR ---
HAND-OFF: Report given to rose Parra.
[2018-09-20 20:00] VITALS: BP 167/108
[2018-09-20] MEDS: Dyna-Hex 2% Top Sol 2oz TOPIC SCH (20:00)
--- NOTE | 2018-09-20 20:15 | NUR ---
NURSE NOTES: Pt signed consent for PICC Line Placement, placed in chart.
[2018-09-20] MEDS: cefTRIAXone 1 GM in D5W 55 ML IVPB SCH (20:25)
[2018-09-20] MEDS: Phenytoin 100mg cap ORAL SCH (20:25)
[2018-09-20] MEDS: Morphine Sulfate 2mg/ml Inj(IV/IM USE ONLY) IVP PRN (20:25)
[2018-09-20] MEDS ORDERED: HYDROcodone/Acetamin 5/325 tab ORAL PRN (23:00)
[2018-09-21] VITALS: BP 147/78
[2018-09-21] MEDS: guaiFENesin w/Codeine 5ml Liq ud ORAL PRN ×2 (00:53→08:38)
--- NOTE | 2018-09-21 00:57 | NUR ---
NURSE NOTES: Pt had seizure for 30 secs: eyes remained open with a blank stare, nonresponsive to voice and touch. Pt blinked awake, oriented x3 upon waking up, fatigued. VSS stable. RN informed Dr. Javier of absence seizure and that pt does not have Ativan PRN. Will continue to monitor pt and wait for call back.
--- NOTE | 2018-09-21 01:45 | History and Physical Report ---
DATE OF ADMISSION: 09/20/2018 HISTORY OF PRESENT ILLNESS: This is a 58-year-old male who is well known from previous admission as well as longterm. The patient came to the emergency room for short of breath, chest pain, and having sore throat and having cough with sputum production. PAST MEDICAL HISTORY: Significant for diabetes, hypertension, chest pain, acute coronary syndrome, hypernatremia. ALLERGIES: NKA. MEDICATIONS: See the list. PHYSICAL EXAMINATION: GENERAL: This is an elderly male. VITAL SIGNS: Blood pressure 171/84, pulse 84, respirations 20, temperature is 98.2. HEENT: Pharynx with erythema. CHEST: Bilateral decreased breath sounds. CARDIOVASCULAR: Regular rhythm. Tachycardia. ABDOMEN: Soft. Positive bowel sounds. Nontender. EXTREMITIES: CCE. NEUROLOGIC: Generalized weakness. LABORATORY DATA: White count 6.4, hemoglobin 11, hematocrit 32, platelets are 194,000. Chemistry panel, BUN 14, creatinine 1.1, glucose is 380. Urine showing 5 to 10, glucose 4+. Toxicology screen is positive for cocaine. ASSESSMENT: 1. Chest pain. 2. Short of breath. 3. Substance abuse. 4. Diabetes. 5. Generalized weakness. PLAN: We will admit on telemetry bed. Consider Cardiology consult. Continue Dilaudid. Continue aspirin . Continue Dilantin. Continue clonidine and morphine 0.5 q.6 h. p.r.n. Also, add antibiotic for acute pharyngitis. Cam Javier M.D. DR: SIRIA JOB#: [id number] CC:
[2018-09-21] MEDS: Morphine Sulfate 2mg/ml Inj(IV/IM USE ONLY) IVP PRN ×2 (02:31→08:16)
--- NOTE | 2018-09-21 03:00 | Consultation ---
DATE OF CONSULTATION: 09/20/2018 CARDIOLOGY CONSULTATION CONSULTING PHYSICIAN: Juan Martin M.D. REFERRING PHYSICIAN: Jordan Javier M.D. REASON FOR CONSULT: Chest pain in the patient with history of coronary artery disease. HISTORY OF PRESENT ILLNESS: The patient is a 58-year-old gentleman with history of coronary artery disease, prior myocardial infarction and stent at [facility] 2 years ago, who states that also he had a stent at [facility] about six months ago. The patient is hypertensive and diabetic, however, is noncompliant with medication. He presented to the emergency room with chest pain while he was at . The pain was 10/10 substernal, but he does not have any radiation. The patient did not have any nausea, vomiting, or diaphoresis and was asking for intravenous narcotics in the emergency room. REVIEW OF SYSTEMS: Review of systems was performed and was negative other than what was mentioned in the history of present illness. PAST MEDICAL HISTORY: As mentioned above. FAMILY HISTORY: Noncontributory. SOCIAL HISTORY: Continues to smoke. Denies using street drugs. PHYSICAL EXAMINATION: VITAL SIGNS: Blood pressure is 184/85, pulse 84, respirations 18, and temperature 98.2. HEAD AND NECK: Showed no jugular venous distention. LUNGS: Clear. CARDIOVASCULAR: Shows regular S1 and S2 with no gallop. ABDOMEN: Soft. EXTREMITIES: No pitting edema. LABORATORY AND DIAGNOSTIC DATA: EKG showed normal sinus rhythm with left atrial enlargement. The laboratories show white count of 6.4, hemoglobin 11.5, hematocrit of 32, and platelet count is 194,000. Sodium 139, potassium 4.1, BUN of 14, creatinine 1.1, and glucose of 380. Troponin negative x3. His urine toxicology screen is positive for cocaine. ASSESSMENT AND PLAN: 1. Chest pain in the patient with history of coronary artery disease and prior stent. The patient also is very noncompliant with his medication and is also an active cocaine user. Avoid beta-asia in view of active cocaine use. Keep him on aspirin and Plavix. After optimizing his blood pressure, we will get scheduled him for a stress test. In the meantime, get an echocardiogram to evaluate for ejection fraction and wall motion abnormality. 2. Hypertension. On amlodipine 10 mg daily and Avapro 75 mg daily that is increased to 150 mg and add Imdur to his medical regimen. 3. Substance use with cocaine. 4. Diabetes. 5. Seizure disorder, on Dilantin and phenobarbital. Thank you very much for allowing me to participate in the care of this patient. Please do not hesitate to contact me for any questions regarding my evaluation. Juan Martin M.D. DR: ROGER JOB#: [id number] CC:
[2018-09-21 04:00] VITALS: BP 131/76
--- NOTE | 2018-09-21 04:50 | NUR ---
NURSE NOTES: Left message with Dr. Javier for Ativan orders.
[2018-09-21] MEDS: NovoLOG Insulin Flexpen SUBQ SCH ×4 (05:25→21:21)
--- NOTE | 2018-09-21 05:56 | NUR ---
NURSE NOTES: Pt refused 0600 meds - Gabapentin and Novolog - stating "I don't want to take those right now. I can't have anything to eat and my sugar will be too low." RN educated pt on risks and benefits of medications as well as his BS of 229. Pt continued to refuse medication.
--- NOTE | 2018-09-21 07:37 | NUR ---
HAND-OFF: Report given to PA Rodriguez. No s/s of acute distress.
[2018-09-21 08:00] VITALS: BP 150/76
--- NOTE | 2018-09-21 08:02 | NUR ---
NURSE NOTES: pt awake alert, no distress. call light within reach. will monitor. bed in lowest position, locked. pt c/o some discomfort on left ej but refusing to restart peripheral iv as pt is aware he is due for picc today prior to lexiscan. Addendum: 09/21/18 at 0851 by SHAWN SHANKS RN upon assessment, left ej iv is patent intact, no infiltration or edema
[2018-09-21] MEDS: PHENobarbital 32.4mg tab ORAL SCH ×2 (08:17→17:20)
[2018-09-21] MEDS: Irbesartan 150mg tablet ORAL SCH (08:17)
[2018-09-21] MEDS: Aspirin EC 81mg tab ORAL SCH (08:18)
--- NOTE | 2018-09-21 09:05 | NUR ---
NURSE NOTES: left msg via doctors exchange re hh today. awaiting response.
--- NOTE | 2018-09-21 10:08 | Physician Query ---
--------- THIS DOCUMENT IS A PERMANENT PART OF THE MEDICAL RECORD --------- PLEASE COMPLETE THE QUESTION BEFORE SIGNING Dear Dr. Javier Date: 09/21/2018 Senior Java Web Application Developer/CDS Name Sindy Everett Phone No. [phone] CLINICAL DOCUMENTATION STATES: Era 58 year old male, with complaints of chest pain. (hx of CAD), Dr. Thompson, documented in his assessment plan, that patient has chest pain, and also is an active cocaine user. Please respond to the following question: Is there a causal relationship between the Chest Pain and Cocaine use ? PHYSICIAN RESPONSE: [ ] YES [ ] NO Condition Present on admission [ ] Yes [ ] No [ ]Clinically Undeterminable Please also document in your Progress Notes and/or Discharge summary and indicate if the condition was present on admission. Physician Signature
--- NOTE | 2018-09-21 11:28 | Cardiac Electrophysiology PN ---
Assessment/Plan Assessment/Plan 1. Chest pain in the patient with history of coronary artery disease and prior stent. The patient also is very noncompliant with his medication and is also an active cocaine user. Avoid beta-asia in view of active cocaine use. Keep him on aspirin and Plavix. Scheduled for a stress test. Echo EF 65% 2. Hypertension. On amlodipine 10 mg daily and Avapro 150 mg and Imdur 3. Substance use with cocaine. 4. Diabetes. 5. Seizure disorder, on Dilantin and phenobarbital. 6. Poor IV access. PICC line pending DW RN Subjective Subjective Scheduled for PICC line and then stress test today Objective Last 24 Hour Vital Signs Date Time Temp Pulse Resp B/P (MAP) Pulse Ox O2 Delivery O2 Flow Rate FiO2 09/21/18 09:05 Room Air 09/21/18 08:46 97.0 09/21/18 08:17 150/76 09/21/18 08:17 90 150/76 09/21/18 08:00 97.0 90 20 150/76 (100) 94 09/21/18 08:00 88 09/21/18 04:00 97.0 82 20 131/76 (94) 94 82 09/21/18 04:00 79 09/21/18 00:00 78 09/21/18 00:00 99.0 85 20 147/78 (101) 96 85 09/20/18 21:00 Room Air 09/20/18 20:00 97 09/20/18 20:00 99.3 87 20 167/108 (127) 100 87 09/20/18 19:05 96 164/93 (116) 96 09/20/18 17:49 98.2 09/20/18 17:16 84 171/84 09/20/18 16:30 98.2 80 20 171/84 (113) 98 84 09/20/18 15:18 77 09/20/18 12:00 99.0 84 24 183/97 (125) 97 84 09/20/18 11:52 183/93 09/20/18 11:33 82 Intake and Output 09/20/18 09/21/18 19:00 07:00 Intake Total 800 ml 110 ml Output Total 600 ml Balance 800 ml -490 ml Intake Oral 800 ml IV Total 110 ml Output Urine Total 600 ml # Voids 1 Microbiology Date/Time Source Procedure Growth Status 5/2/19 16:40 Nasal Nares - Final Complete 09/20/18 16:40 Nasal Nares - Final Complete Objective HEAD AND NECK: No jugular venous distention. LUNGS: Clear. CARDIOVASCULAR: Regular S1 and S2 with no gallop. ABDOMEN: Soft. EXTREMITIES: No pitting edema. Juan Martin MD September 21, 2018 11:28
--- NOTE | 2018-09-21 11:48 | Diagnostic Imaging Report ---
Indications: Needs long-term IV access Technique: Ultrasound confirms patent compressible right basilic vein. Total sterile technique, including sterile probe cover and sterile gel, hat, mask, sterile gown, large sterile drape, and preparation with 2% chlorhexidine utilized. Local anesthesia with 1% lidocaine. Under real-time ultrasound guidance, puncture basilic vein using 21-gauge needle, documented and archived, passage 0.018 guidewire under direct fluoroscopy, which was used to determine appropriate catheter length, exchange for 4 [place] peel-away sheath. 4 [place] Bard dual-lumen power PICC cut to 35 cm. It was inserted through the peel-away sheath. Peel-away sheath and guidewire removed. Catheter fixed to the skin. Both catheter ports aspirated and flushed. Patient tolerated procedure well, without immediate complication. Digital radiograph documents satisfactory catheter tip position, at the cavoatrial junction. Total fluoroscopy time 18.2 seconds. Total dose area product [id number] mGym2 Total number of images: 1 Impression: Successful placement of PICC under sonographic and fluoroscopic guidance, as described above.
[2018-09-21] MEDS: HYDROcodone/Acetamin 5/325 tab ORAL PRN ×2 (11:52→20:38)
[2018-09-21 12:00] VITALS: BP 132/73
--- NOTE | 2018-09-21 13:27 | Cardiology Report ---
APPROVED REPORT EXAM: Two-dimensional and M-mode echocardiogram with Doppler and color Doppler. INDICATION Chest Pain M-Mode DIMENSIONS IVSd1.2 (0.7-1.1cm)Left Atrium (MM)4.0 (1.6-4.0cm) LVDd4.6 (3.5-5.6cm)Aortic Root3.2 (2.0-3.7cm) PWd1.0 (0.7-1.1cm)Aortic Cusp Exc.1.9 (1.5-2.0cm) LVDs3.0 (2.5-4.0cm) PWs1.6 cm Normal left ventricular chamber size, systolic function and wall motion. Left ventricular ejection fraction estimated to be 60-65 %. Mild left ventricular hypertrophy. No evidence of pericardial effusion. All other cardiac chamber sizes are within normal limits. Focal aortic valve sclerosis with adequate cusp excursion. Mildly tickened mitral valve leaflets with normal excursion. Mild mitral annulus and aortic root calcification. Pulmonic valve not well visualized. Normal tricuspid valve structure. IVC is normal in size with physiological collapse. A color flow and spectral Doppler study was performed and revealed: No aortic insufficiency. No mitral regurgitation. Mitral diastolic velocities suggest mild left ventricular diastolic dysfunction (Grade I). Trace tricuspid regurgitation. Tricuspid systolic velocities suggests peak right ventricular systolic pressure of 13 mmHg. No pulmonic regurgitation present.
--- NOTE | 2018-09-21 15:07 | NUR ---
*-* INSURANCE *-* CLINICALS AND REVIEWS HAVE BEEN FAXED TO: IPA: SABINA MORE P: [phone] F: [phone]
--- NOTE | 2018-09-21 15:21 | NUR ---
CASE MANAGEMENT:REVIEW 58 YR OLD FEMALE FROM HOME CC: CHEST PAIN SI: ACS. COCAINE ABUSE 98.3 84 18 187/85 97% ON RA GLUCOSE+380 TROPONIN(-) URINE(+) COCAINE IS: ASA PO GIVEN INSTRUCTIONAL AIDE NITRO GIVEN INSTRUCTIONAL AIDE IV TORADOL NORCO PO CXR : TO TELEMETRY INTERQUAL CRITERIA MET
[2018-09-21 16:13] VITALS: BP 103/55
--- NOTE | 2018-09-21 17:08 | Diagnostic Imaging Report ---
Indications: 58-year-old male with chest pain Technique: Single day single isotope protocol utilized. Initially, resting images obtained using IV administration 10.5 millicuries 99M technetium Myoview. Subsequently, patient underwent lexiscan stress testing. See cardiology report for details. During adenosine infusion, IV administration 29.5 mCi 99 M technetium Myoview. SPECT and planar images obtained. SPECT images gated to 8 phases of the cardiac cycle were also obtained, and reformatted into cine images for evaluation of ejection fraction. Comparison: 08/17/2017 Findings: Per cardiology report, patient experienced no chest pain. Per cardiology report, resting EKG demonstrates normal sinus rhythm, cannot rule out anterior [place]. Presence or absence of ST changes during infusion not described on the cardiology report. Imaging demonstrates normal post stress perfusion, no fixed nor reversible post stress perfusion defects. Normal cardiac chamber size.. Calculated post stress ejection fraction 77%. No focal wall motion abnormality Impression: Nonischemic clinical response to pharmacologic stress, per cardiology report Nonischemic electrocardiographic response to pharmacologic stress, per cardiology report No imaging findings to suggest ischemia, at level of stress achieved. Calculated post stress ejection fraction greater than 70%
--- NOTE | 2018-09-21 19:15 | NUR ---
NURSE NOTES: Received pt. and report from PA Rodriguez. Observe pt. resting in bed with both eyes open. Pt. is A/Ox4. IV site intact, asymptomatic, and patent. Bed is in the lowest position and locked. Call light within reach. No signs/symptoms of acute distress noted at this time. Will continue plan of care.
--- NOTE | 2018-09-21 19:21 | NUR ---
HAND-OFF: Report given to HUNG WINN.
--- NOTE | 2018-09-21 19:45 | Progress Note ---
DATE: 09/21/2018 SUBJECTIVE: This is an elderly male. Currently still complaining mild short of breath. His troponins are positive. OBJECTIVE: VITAL SIGNS: Stable. CHEST: Bilateral few crackles. CARDIOVASCULAR: Regular rhythm. No gallop. No murmur. ABDOMEN: Soft. EXTREMITIES: CCE. NEUROLOGICAL: No focal deficit. ASSESSMENT AND PLAN: 1. Substance abuse. 2. Acute coronary syndrome. 3. Hypertension. 4. Diabetes. 5. Depression. Pending Cardiology consult . Cam Javier M.D. DR: YANCY JOB#: [id number] CC:
[2018-09-21 20:00] VITALS: BP 106/58
[2018-09-21] MEDS: Dyna-Hex 2% Top Sol 2oz TOPIC SCH (20:09)
[2018-09-21] MEDS: cefTRIAXone 1 GM in D5W 55 ML IVPB SCH (20:09)
[2018-09-21] MEDS: Phenytoin 100mg cap ORAL SCH (20:37)
[2018-09-22] VITALS: BP 110/64
[2018-09-22 04:00] VITALS: BP 143/65
[2018-09-22] MEDS: NovoLOG Insulin Flexpen SUBQ SCH ×4 (06:16→21:34)
[2018-09-22] MEDS: guaiFENesin w/Codeine 5ml Liq ud ORAL PRN (06:39)
[2018-09-22] MEDS: HYDROcodone/Acetamin 5/325 tab ORAL PRN ×3 (06:40→21:39)
--- NOTE | 2018-09-22 07:18 | NUR ---
HAND-OFF: Report given to PA Marin.
--- NOTE | 2018-09-22 07:20 | NUR ---
NURSE NOTES: Pt received from Kate, RN alert and oriented x4, currently resting in bed having breakfast with no acute s/s of distress. Bed in lowest position, HOB elevated, bed alarm on. Belongings and call light within reach.
[2018-09-22 08:00] VITALS: BP 125/76
[2018-09-22] MEDS: Irbesartan 150mg tablet ORAL SCH (08:52)
[2018-09-22] MEDS: Aspirin EC 81mg tab ORAL SCH (08:52)
[2018-09-22] MEDS: PHENobarbital 32.4mg tab ORAL SCH ×2 (08:53→17:24)
[2018-09-22] MEDS: Imdur 30mg tab ORAL SCH (08:54)
[2018-09-22 12:00] VITALS: BP 101/53
--- NOTE | 2018-09-22 14:10 | NUR ---
PT Note Attempted to see patient for eval/tx but patient refused. States that he just took some medication and it makes him dizzy. Will try again in AM.
--- NOTE | 2018-09-22 15:25 | Cardiac Electrophysiology PN ---
Assessment/Plan Assessment/Plan 1. Chest pain in the patient with history of coronary artery disease and prior stent. The patient also is very noncompliant with his medication and is also an active cocaine user. Avoid beta-asia in view of active cocaine use. Keep him on aspirin and Plavix. Stress test showed no ischemia. Echo EF 65% 2. Hypertension. On amlodipine 10 mg daily and Avapro 150 mg and Imdur 3. Substance use with cocaine. 4. Diabetes. 5. Seizure disorder, on Dilantin and phenobarbital. 6. Poor IV access. S/P PICC line RUTHIE RN OK to DC from cardiac stand point DC tele Subjective Subjective Had PICC line and then stress test yesterday Objective Last 24 Hour Vital Signs Date Time Temp Pulse Resp B/P (MAP) Pulse Ox O2 Delivery O2 Flow Rate FiO2 09/22/18 12:00 77 09/22/18 12:00 99.1 69 18 101/53 (69) 96 09/22/18 09:00 Room Air 09/22/18 08:53 74 125/76 09/22/18 08:52 125/76 09/22/18 08:00 75 09/22/18 08:00 97.8 74 18 125/76 (92) 95 09/22/18 04:00 97.9 78 18 143/65 (91) 97 09/22/18 04:00 69 09/22/18 00:00 98.0 72 20 110/64 (79) 98 09/22/18 00:00 65 09/21/18 21:00 Room Air 09/21/18 20:00 67 09/21/18 20:00 97.9 65 20 106/58 (74) 97 09/21/18 16:13 97.0 80 20 103/55 (71) 94 09/21/18 15:46 77 Intake and Output 09/21/18 09/22/18 19:00 07:00 Intake Total 800 ml Output Total 500 ml 800 ml Balance 300 ml -800 ml Intake Oral 800 ml Output Urine Total 500 ml 800 ml # Voids 2 3 Microbiology Date/Time Source Procedure Growth Status 09/20/18 16:40 Nasal Nares - Final Complete 09/20/18 16:40 Nasal Nares - Final Complete Objective HEAD AND NECK: No jugular venous distention. LUNGS: Clear. CARDIOVASCULAR: Regular S1 and S2 with no gallop. ABDOMEN: Soft. EXTREMITIES: No pitting edema. Juan Martin MD September 22, 2018 15:25
[2018-09-22 16:00] VITALS: BP 110/55
--- NOTE | 2018-09-22 18:05 | NUR ---
NURSE NOTES: Per Dr. Javier and Dr. Martin, pt is clear in cardiac standpoint and can go to Med-Surg. Transfer orders placed, CRN informed.
--- NOTE | 2018-09-22 18:15 | NUR ---
NURSE NOTES: Pt was informed of transfer to [facility] and pt stated "I don't want to go there. If I'm going to be transferred, just release me. I'm just going to leave here." RN advised pt of difference between units and that he will still be given the same care, pt stated, "No, you're transferring me because I'm going to be discharged away. I'll just leave." RN informed CRN and informed Dr. Javier. Per Dr. Javier, "keep pt on tele, will d/c him tomorrow."
--- NOTE | 2018-09-22 19:15 | NUR ---
NURSE NOTES: Received report from Gail WINN, pt. in bed awake- talking on phone, no signs or symptoms of acute cardiac or respiratory distress noted, pt. is not on air sampling and monitoring as pt. is med-surge transfer, bed in lowest position and call light within easy reach, Able to make needs known- A/o x's4, pt. appears to be sating well on room air at 98%- no distress noted, urinal at bedside and within easy reach, pt. teaching done about blood sugar reading being critically high, right arm PICC intact and patent, safety measures continued, will continue with plan of care. Addendum: 09/22/18 at 2208 by RENATA FRANCISCO RN RN side rails padded for seizure precautions- no seizure activity noted upon assessment.
--- NOTE | 2018-09-22 19:20 | NUR ---
HAND-OFF: Report given to PA Mcnair.
[2018-09-22 20:00] VITALS: BP 121/67
[2018-09-22] MEDS: Dyna-Hex 2% Top Sol 2oz TOPIC SCH (20:50)
[2018-09-22] MEDS: cefTRIAXone 1 GM in D5W 55 ML IVPB SCH (20:50)
[2018-09-22] MEDS: Phenytoin 100mg cap ORAL SCH (20:51)
--- NOTE | 2018-09-22 21:06 | NUR ---
NURSE NOTES: left message for Dr. Javier w/ exchange regarding pt. has critically high blood sugar reading at 509- awaiting for call back from doctor.
--- NOTE | 2018-09-22 22:23 | NUR ---
NURSE NOTES: re-checked blood sugar still shows critically high- awaiting for call back from doctor.
--- NOTE | 2018-09-22 22:31 | NUR ---
NURSE NOTES: left message for Dr. Javier w/ exchange regarding pt. has critically high blood sugar reading at 510-after covering the patient with 14U- per DR. Javier to order 15U Levemir Daily Sub Q- start order now and to change NovoLog scale to high scale- orders carried out. per DR. Javier to not call him during the night aware pt. is poor compliant.
[2018-09-22] MEDS ORDERED: Levemir Flexpen SUBQ SCH (22:45)
[2018-09-23] VITALS: BP 120/65
--- NOTE | 2018-09-23 02:15 | Progress Note ---
DATE: 09/22/2018 SUBJECTIVE: This is an elderly male currently in the bed, not feeling well. He is still feeling generalized weakness and complaining of pain. OBJECTIVE: VITAL SIGNS: Blood pressure is 110/55, pulse 66, respirations 18, and temperature, no fever. CHEST: Bilateral few crackles. CARDIOVASCULAR: Regular rhythm. ABDOMEN: Soft. EXTREMITIES: CCE. NEUROLOGIC: Generalized weakness. GENITOURINARY: Deferred. LABORATORY DATA: The patient has no labs today. His stress test is negative. ASSESSMENT: 1. Acute coronary syndrome. 2. Hypertension. 3. Diabetes. 4. Substance abuse. 5. Peripheral vascular disease. PLAN: We will currently continue isosorbide. PT and OT. Continue aspirin. Continue Avapro. Continue Dilantin. Continue phenobarbital. Discharge plan, home. Followup with primary care as an outpatient and also recommended to quit drugs and psych is on the case. Cam Javier M.D. DR: FREDDIE JOB#: [id number] CC:
[2018-09-23 03:55] VITALS: BP 128/70
[2018-09-23] MEDS: NovoLOG Insulin Flexpen SUBQ SCH ×2 (05:31→11:06)
--- NOTE | 2018-09-23 07:22 | NUR ---
NURSE NOTES: Received pt from PA Mcnair in stable condition with reported elevated blood glucose levels for close monitoring- will monitor pt and follow up w/ Dr. Javier. Pt is asleep in bed on RA. Pt uses urinal to void. No skin alterations noted.Pt has a R FA PICC. Pt is a medsurg pt without cardiac monitoring at this time. Bed is in lowest position with alarm on, side rails up x 3, call light within reach. Will continue to monitor pt.
--- NOTE | 2018-09-23 07:25 | NUR ---
HAND-OFF: Report given to Maci RN, pt. remains in bed no distress noted. Nurse aware to f/u on discharge and blood sugar - msg left for DR. Javier.
--- NOTE | 2018-09-23 07:27 | NUR ---
NURSE NOTES: left msg with exchange that patients blood sugar critically high this am and covered with 16U- waiting for call back from doctor.
[2018-09-23 08:00] VITALS: BP 132/74
[2018-09-23] MEDS: PHENobarbital 32.4mg tab ORAL SCH (08:24)
[2018-09-23] MEDS: Irbesartan 150mg tablet ORAL SCH (08:25)
[2018-09-23] MEDS: Aspirin EC 81mg tab ORAL SCH (08:25)
[2018-09-23] MEDS: Imdur 30mg tab ORAL SCH (08:26)
--- NOTE | 2018-09-23 10:14 | NUR ---
Late entry: side rails padded per seizure precaution.
--- NOTE | 2018-09-23 11:13 | NUR ---
CASE MANAGEMENT: DCPNOTE PER MD WANG PATIENT REFERRED TO JERED FERGUSON [phone] PH / [phone] EL BREWSTER WILL FOLLOW UP Addendum: 09/23/18 at 1201 by TONG SCHAEFFER CM LEFT MESSAGE FOR REYES [phone] PH PER NIC / JERED [phone] NO ONE IN ADMISSIONS TODAY
[2018-09-23 12:00] VITALS: BP 113/61
--- NOTE | 2018-09-23 12:22 | NUR ---
NURSE NOTES: Patient refused to go over belongings inventory with me. He states "it's fine I got all my stuff I don't wana go over it now." Patient agreed to sign belongings form.
--- NOTE | 2018-09-23 13:00 | NUR ---
NURSE NOTES: Pt now is complaining that he cannot find his "hat and t-shirt." Myself and the charge nurse searched for it in the room and called ER but cannot find the items as of now. Payal from Nursing fiber locking supervisor office came to speak w/ patient and states she will follow up with him if we are able to locate it in the future. Patient, however, refused to let us search his backpack. Unable to determine what is in there.
--- NOTE | 2018-09-23 13:30 | NUR ---
NURSE NOTES: Pt discharged to home with belongings in stable condition with no cardiopulmonary distress noted. PICC line discontinued and pressure applied for 15 minutes before d/c with no signs of bleeding. Pt transported out of hospital via wheel chair. Pt used his cane to ambulate to bus stop. Bus tokens provided to pt by Payal nursing workers compensation claims supervisor. Addendum: 09/23/18 at 1401 by Michelle Lux RN Late entry: Patient also instructed to follow up with PCP and given discharge instruction. Patient educated about DM management and importance of getting treatment for drug abuse. Pt verbalized understanding and agreed to follow up with PCP. Also states he knows how to self-administer insulin at home. Pt given educational material regarding his diagnosis and given smoking cessation packet.
--- NOTE | 2018-09-24 04:45 | Discharge Summary ---
DATE OF ADMISSION: 09/20/2018 DATE OF DISCHARGE: 09/23/2018 NOTE: POOR AUDIO HOSPITAL COURSE: This is a young 58 years old male, came to the emergency room for acute coronary syndrome, also drug abuse. troponins are negative. . The patient was feeling generalized weakness and pain. He was given pain medication and the patient is physically doing better is going to go home. Hospital course is otherwise unremarkable. DISCHARGE DIAGNOSES: 1. Acute coronary syndrome. 2. Hypertension. 3. Diabetes poorly controlled and poor compliance. 4. Peripheral vascular disease. DIET: He is on 2 g sodium, 1800 ADA diet. MEDICATIONS: See the list . Cam Javier M.D. DR: Romario JOB#: [id number] CC:
== END 2018-09-23 13:37 | disposition home or self-care (01) | DRG 198 ==
LOC: EDBD 03:15 → EMR 03:45 → 2E 05:00 → EDBEDREQ 06:52 → 2E 14:24
PROC: 02HV33Z Insertion of Infusion Device into Superior Vena Cava, Percutaneous Approach (ICD-10-PCS; principal; 2018-09-21)
DX: I24.9 Acute ischemic heart disease, unspecified (principal); E87.0 Hyperosmolality and hypernatremia; E11.9 Type 2 diabetes mellitus without complications; F14.10 Cocaine abuse, uncomplicated; Z91.19 Patient's noncompliance with other medical treatment and regimen; G40.909 Epilepsy, unspecified, not intractable, without status epilepticus; I10 Essential (primary) hypertension; I73.9 Peripheral vascular disease, unspecified; I25.10 Atherosclerotic heart disease of native coronary artery without angina pectoris; Z95.5 Presence of coronary angioplasty implant and graft; I25.2 Old myocardial infarction; Z91.14 Patient's other noncompliance with medication regimen; F17.200 Nicotine dependence, unspecified, uncomplicated; F32.9 Major depressive disorder, single episode, unspecified
CPT/HCPCS: 36415; 36569; 71045; 76937; 78452; 80053; 80307; 80329; 81003; 82550; 82553; 82962; 83880; 84484; 85025; 85610; 85730; 86710; 93005; 93017; 93306; 96374; 99285; J1815; J2785; S5561